=== PATIENT | male | born 1980 | race Two or more races ===

== ENCOUNTER 2017-11-06 17:17 | Inpatient (IN) | payer OTHER ==
[2017-11-06] MEDS ORDERED: HYDROmorphone 2 MG/ML SDV IM ONE (18:33)
[2017-11-06] MEDS ORDERED: Sodium Chloride 0.9% 10 ML Syringe FLUSH PRN ×2 (18:33→23:57)
[2017-11-06] MEDS ORDERED: Sodium Chloride 0.9% 2.5 ML Syringe FLUSH PRN ×2 (18:33→23:57)
[2017-11-06] MEDS ORDERED: Ondansetron 4 MG/2 ML SDV IVPUSH ONE ×2 (18:33→20:36)
--- NOTE | 2017-11-06 18:34 | EDM.PDOC ---
ED HPI GENERAL MEDICAL PROBLEM - General Chief Complaint: Abdominal Pain Stated Complaint: ABDOMINAL PAIN Time Seen by Provider: 11/06/17 18:25 Source of Information: Reports: Patient History Limitations: Reports: No Limitations - History of Present Illness INITIAL COMMENTS - FREE TEXT/NARRATIVE: HISTORY AND PHYSICAL: History of present illness: [Patient comes to the emergency room accompanied by his with complaints of abdominal pain as 5 AM this morning. The pain woke him up at 5 AM and has been continuing throughout the day. Vomiting started this evening around 4 PM. Patient states that he ate normally today including left over food from a [place] restaurant, chicken and quinoa. Last BM was at 5 p.m. and was normal. Feels bloated and full in his entire abdomen. No recent travel outside the country. No fever or chills, though he admits to feeling warm. No sore throat runny nose, recent illness or infection. No cough chest pain shortness of breath or difficulty breathing. No blood in his emesis or stools. No pain to extremities. He has no other complaints or concerns. No ill family members. History of H. pylori infection 6-7 years ago. Current symptoms feel similar.] Review of systems: As per history of present illness and below otherwise all systems reviewed and negative. Past medical history: As per history of present illness and as reviewed below otherwise noncontributory. Surgical history: As per history of present illness and as reviewed below otherwise noncontributory. Social history: No reported history of drug or alcohol abuse. Family history: As per history of present illness and as reviewed below otherwise noncontributory. Physical exam: General: Well-developed well-nourished male in no acute distress. He is hunched over an emesis bag upon arrival to the ER. HEENT: Atraumatic, normocephalic. Oral mucous membranes are pink but dry. Neck supple, no lymphadenopathy. Lungs: Clear to auscultation, breath sounds equal bilaterally, chest nontender.No wheezing, crackles or rales. Heart: S1S2, regular, negative for clicks, rubs, or JVD. Abdomen: Bowel sounds are quiet but present throughout. Abdomen is soft and nondistended. He is tender with palpation throughout his entire abdomen. No CVA tenderness. Pelvis: Stable nontender. Genitourinary: Deferred. Rectal: Deferred. Extremities: Atraumatic, negative for cords or calf pain. Swelling or cyanosis to feet or lower legs. Neurovascular unremarkable. Neuro: Awake, alert, oriented. Motor and sensory unremarkable throughout. Exam nonfocal. Diagnostics: [CBC, CMP, urinalysis, amylase, lipase, H. Pylori, CT abdomen and pelvis with contrast] Therapeutics: [1 liter NS, Dilaudid 1 mg IV, Zofran 4 mg IV] Impression: [Appendicitis H. pylori] Plan: [White blood cells 13.6, hemoglobin 14.4, H. pylori positive, amylase 54, lipase 168. Normal CMP and urinalysis. Case is discussed with Dr. Aure Lambert at 2034 who agrees to come to the emergency room to evaluate patient. She arrives to see patient in the ER at 2052 and care is transitioned to her. ] Definitive disposition and diagnosis as appropriate pending reevaluation and review of above. Right Upper Abdominal Pain Score (Numeric/FACES): 8 - Related Data Allergies Allergy/AdvReac Type Severity Reaction Status Date / Time No Known Allergies Allergy Verified 11/06/17 17:33 Home Meds: Home Meds . [No Known Home Meds] 11/06/17 [History] Past Medical History - Past Health History Medical/Surgical History: Denies Medical/Surgical History Social & Family History - Family History Family Medical History: Noncontributory - Tobacco Use Smoking Status *Q: Never Smoker - Recreational Drug Use Recreational Drug Use: No ED ROS GENERAL - Review of Systems Review Of Systems: ROS reveals no pertinent complaints other than HPI. ED EXAM, GI/ABD - Physical Exam Exam: See Below Course - Vital Signs Last Recorded V/S: Last Vital Signs Temp 97.8 F 11/06/17 18:48 Pulse 67 11/06/17 18:48 Resp 18 11/06/17 18:48 BP 116/41 L 11/06/17 18:48 Pulse Ox 97 11/06/17 18:48 - Orders/Labs/Meds Orders: Active Orders 24 hr Category Date Time Status Abdomen Pelvis w Cont [CT] Stat Exams 11/06/17 19:31 Taken UA W/MICROSCOPIC [URIN] Stat Lab 11/06/17 18:40 Ordered Sodium Chloride 0.9% [Saline Flush] Med 11/06/17 18:33 Active 10 ml FLUSH ASDIRECTED PRN Sodium Chloride 0.9% [Saline Flush] Med 11/06/17 18:33 Active 2.5 ml FLUSH ASDIRECTED PRN Saline Lock Insert [OM.PC] Stat Oth 11/06/17 18:32 Ordered Medication Orders Sodium Chloride (Saline Flush) 10 ml FLUSH ASDIRECTED PRN PRN Reason: Keep Vein Open Sodium Chloride (Saline Flush) 2.5 ml FLUSH ASDIRECTED PRN PRN Reason: Keep Vein Open Labs: Laboratory Tests 11/06/17 11/06/17 11/06/17 Range/Units 18:40 18:40 18:40 WBC 13.60 H (4.0-11.0) K/uL RBC 4.84 (4.50-5.90) M/uL Hgb 14.4 (13.0-17.0) g/dL Hct 42.1 (38.0-50.0) % MCV 87.0 (80.0-98.0) fL MCH 29.8 (27.0-32.0) pg MCHC 34.2 (31.0-37.0) g/dL RDW Std Deviation 44.5 (28.0-62.0) fl RDW Coeff of Chalino 14 (11.0-15.0) % Plt Count 191 (150-400) K/uL MPV 10.50 (7.40-12.00) fL Neut % (Auto) 69.8 (48.0-80.0) % Lymph % (Auto) 26.3 (16.0-40.0) % [place] % (Auto) 3.2 (0.0-15.0) % Eos % (Auto) 0.5 (0.0-7.0) % Baso % (Auto) 0.2 (0.0-1.5) % Neut # (Auto) 9.5 H (1.4-5.7) K/uL Lymph # (Auto) 3.6 H (0.6-2.4) K/uL [place] # (Auto) 0.4 (0.0-0.8) K/uL Eos # (Auto) 0.1 (0.0-0.7) K/uL Baso # (Auto) 0.0 (0.0-0.1) K/uL Nucleated RBC % 0.0 /100WBC Nucleated RBCs # 0 K/uL Sodium 140 (136-148) mmol/L Potassium 4.0 (3.5-5.1) mmol/L Chloride 103 (98-107) mmol/L Carbon Dioxide 29.2 (21.0-32.0) mmol/L BUN 19 H (7.0-18.0) mg/dL Creatinine 1.4 H (0.8-1.3) mg/dL Est Cr Clr Drug Dosing 68.85 mL/min Estimated GFR (MDRD) 57.7 ml/min Glucose 125 H (74-106) mg/dL Calcium 8.9 (8.5-10.1) mg/dL Total Bilirubin 0.4 (0.2-1.0) mg/dL AST 32 (15-37) IU/L ALT 57 (14-63) IU/L Alkaline Phosphatase 64 (46-116) U/L Total Protein 7.8 (6.4-8.2) g/dL Albumin 4.2 (3.4-5.0) g/dL Globulin 3.6 H (2.0-3.5) g/dL Albumin/Globulin Ratio 1.2 L (1.3-2.8) Amylase 54 (25-115) U/L Lipase 168 (73-393) U/L Urine Color YELLOW Urine Appearance CLEAR Urine pH 6.0 (5.0-8.0) Ur Specific [place] >= 1.030 (1.001-1.035) Urine Protein NEGATIVE (NEGATIVE) mg/dL Urine Glucose (UA) NEGATIVE (NEGATIVE) mg/dL Urine Ketones NEGATIVE (NEGATIVE) mg/dL Urine Occult Blood TRACE-INTACT (NEGATIVE) Urine Nitrite NEGATIVE (NEGATIVE) Urine Bilirubin NEGATIVE (NEGATIVE) Urine Urobilinogen 0.2 (<2.0) EU/dL Ur Leukocyte Esterase NEGATIVE (NEGATIVE) Urine RBC 0-1 (0-2/HPF) Urine WBC 0-1 (0-5/HPF) Ur Epithelial Cells RARE (NONE-FEW) Urine Bacteria RARE (NEGATIVE) H. pylori IgG Antibody (NEG) 11/06/17 Range/Units 18:40 WBC (4.0-11.0) K/uL RBC (4.50-5.90) M/uL Hgb (13.0-17.0) g/dL Hct (38.0-50.0) % MCV (80.0-98.0) fL MCH (27.0-32.0) pg MCHC (31.0-37.0) g/dL RDW Std Deviation (28.0-62.0) fl RDW Coeff of Chalino (11.0-15.0) % Plt Count (150-400) K/uL MPV (7.40-12.00) fL Neut % (Auto) (48.0-80.0) % Lymph % (Auto) (16.0-40.0) % [place] % (Auto) (0.0-15.0) % Eos % (Auto) (0.0-7.0) % Baso % (Auto) (0.0-1.5) % Neut # (Auto) (1.4-5.7) K/uL Lymph # (Auto) (0.6-2.4) K/uL [place] # (Auto) (0.0-0.8) K/uL Eos # (Auto) (0.0-0.7) K/uL Baso # (Auto) (0.0-0.1) K/uL Nucleated RBC % /100WBC Nucleated RBCs # K/uL Sodium (136-148) mmol/L Potassium (3.5-5.1) mmol/L Chloride (98-107) mmol/L Carbon Dioxide (21.0-32.0) mmol/L BUN (7.0-18.0) mg/dL Creatinine (0.8-1.3) mg/dL Est Cr Clr Drug Dosing mL/min Estimated GFR (MDRD) ml/min Glucose (74-106) mg/dL Calcium (8.5-10.1) mg/dL Total Bilirubin (0.2-1.0) mg/dL AST (15-37) IU/L ALT (14-63) IU/L Alkaline Phosphatase (46-116) U/L Total Protein (6.4-8.2) g/dL Albumin (3.4-5.0) g/dL Globulin (2.0-3.5) g/dL Albumin/Globulin Ratio (1.3-2.8) Amylase (25-115) U/L Lipase (73-393) U/L Urine Color Urine Appearance Urine pH (5.0-8.0) Ur Specific [place] (1.001-1.035) Urine Protein (NEGATIVE) mg/dL Urine Glucose (UA) (NEGATIVE) mg/dL Urine Ketones (NEGATIVE) mg/dL Urine Occult Blood (NEGATIVE) Urine Nitrite (NEGATIVE) Urine Bilirubin (NEGATIVE) Urine Urobilinogen (<2.0) EU/dL Ur Leukocyte Esterase (NEGATIVE) Urine RBC (0-2/HPF) Urine WBC (0-5/HPF) Ur Epithelial Cells (NONE-FEW) Urine Bacteria (NEGATIVE) H. pylori IgG Antibody POSITIVE H (NEG) Meds: Medications Generic Name Dose Route Start Last Admin Trade Name Freq PRN Reason Stop Dose Admin Sodium Chloride 10 ml 11/06/17 18:33 Saline Flush FLUSH ASDIRECTED PRN Keep Vein Open Sodium Chloride 2.5 ml 11/06/17 18:33 Saline Flush FLUSH ASDIRECTED PRN Keep Vein Open Discontinued Medications Generic Name Dose Route Start Last Admin Trade Name Freq PRN Reason Stop Dose Admin Hydromorphone HCl 1 mg 11/06/17 18:33 11/06/17 18:55 Dilaudid IM 11/06/17 18:34 Not Given ONETIME ONE Hydromorphone HCl 1 mg 11/06/17 18:36 11/06/17 18:55 Dilaudid IV 11/06/17 18:37 1 mg ONETIME ONE Administration Hydromorphone HCl 1 mg 11/06/17 20:36 11/06/17 20:45 Dilaudid IV 11/06/17 20:37 1 mg ONETIME ONE Administration Sodium Chloride 1,000 mls @ 999 mls/hr 11/06/17 19:34 11/06/17 20:46 Normal Saline IV 11/06/17 20:34 999 mls/hr STAT ONE Administration Iopamidol 200 ml 11/06/17 20:05 11/06/17 20:06 Isovue Multipack-370 (76%) IVPUSH 11/06/17 20:06 100 ml ONETIME STA Administration Ondansetron HCl 4 mg 11/06/17 18:33 11/06/17 18:47 Zofran IVPUSH 11/06/17 18:34 4 mg ONETIME ONE Administration Ondansetron HCl 4 mg 11/06/17 20:36 11/06/17 20:45 Zofran IVPUSH 11/06/17 20:37 4 mg ONETIME ONE Administration Departure - Departure Time of Disposition: 20:55 Disposition: Admitted As Inpatient 68 Condition: Good Clinical Impression: Appendicitis - Discharge Information - My Orders Last 24 Hours: My Active Orders 11/06/17 18:32 Saline Lock Insert [OM.PC] Stat 11/06/17 18:33 Sodium Chloride 0.9% [Saline Flush] 10 ml FLUSH ASDIRECTED PRN Sodium Chloride 0.9% [Saline Flush] 2.5 ml FLUSH ASDIRECTED PRN 11/06/17 18:40 UA W/MICROSCOPIC [URIN] Stat 11/06/17 19:31 Abdomen Pelvis w Cont [CT] Stat - Assessment/Plan Last 24 Hours: My Active Orders 11/06/17 18:32 Saline Lock Insert [OM.PC] Stat 11/06/17 18:33 Sodium Chloride 0.9% [Saline Flush] 10 ml FLUSH ASDIRECTED PRN Sodium Chloride 0.9% [Saline Flush] 2.5 ml FLUSH ASDIRECTED PRN 11/06/17 18:40 UA W/MICROSCOPIC [URIN] Stat 11/06/17 19:31 Abdomen Pelvis w Cont [CT] Stat
[2017-11-06] MEDS ORDERED: HYDROmorphone 2 MG/ML SDV IV ONE ×2 (18:36→20:36)
[2017-11-06] MEDS ORDERED: Sodium Chloride 0.9% 1,000 ML IV ONE (19:34)
[2017-11-06] MEDS ORDERED: Iopamidol 755 MG/ML 200 ML Multipack Bottle IVPUSH STA (20:05)
[2017-11-06] MEDS ORDERED: Piperacillin/Tazobactam 3.375 GM in Sodium Chloride 0.9% 50 ML IV ONE (21:13)
--- NOTE | 2017-11-06 21:27 | PCM.PREANE ---
Preanesthetic Assessment - Anesthesia/Transfusion/Family Hx Anesthesia History: No Prior Anesthesia - Review of Systems General: No Symptoms Pulmonary: No Symptoms Cardiovascular: No Symptoms Gastrointestinal: No Symptoms Neurological: No Symptoms Other: Reports: None - Physical Assessment O2 Sat by Pulse Oximetry: 97 Respiratory Rate: 18 Vital Signs: Last Vital Signs Temp 97.8 F 11/06/17 18:48 Pulse 67 11/06/17 18:48 Resp 18 11/06/17 18:48 BP 116/41 L 11/06/17 18:48 Pulse Ox 97 11/06/17 18:48 Height: 5 ft 7 in Weight: 93.8 kg ASA Class: 1E Mental Status: Alert & Oriented x3 Airway Class: Mallampati = 2 Dentition: Reports: Normal Dentition Thyro-Mental Finger Breadths: 3 Mouth Opening Finger Breadths: 3 ROM/Head Extension: Full Lungs: Clear to Auscultation, Normal Respiratory Effort Cardiovascular: Regular Rate, Regular Rhythm - Lab Values: Laboratory Last Values WBC 13.60 K/uL (4.0-11.0) H 11/06/17 18:40 RBC 4.84 M/uL (4.50-5.90) 11/06/17 18:40 Hgb 14.4 g/dL (13.0-17.0) 11/06/17 18:40 Hct 42.1 % (38.0-50.0) 11/06/17 18:40 MCV 87.0 fL (80.0-98.0) 11/06/17 18:40 MCH 29.8 pg (27.0-32.0) 11/06/17 18:40 MCHC 34.2 g/dL (31.0-37.0) 11/06/17 18:40 RDW Std Deviation 44.5 fl (28.0-62.0) 11/06/17 18:40 RDW Coeff of Chalino 14 % (11.0-15.0) 11/06/17 18:40 Plt Count 191 K/uL (150-400) 11/06/17 18:40 MPV 10.50 fL (7.40-12.00) 11/06/17 18:40 Neut % (Auto) 69.8 % (48.0-80.0) 11/06/17 18:40 Lymph % (Auto) 26.3 % (16.0-40.0) 11/06/17 18:40 [place] % (Auto) 3.2 % (0.0-15.0) 11/06/17 18:40 Eos % (Auto) 0.5 % (0.0-7.0) 11/06/17 18:40 Baso % (Auto) 0.2 % (0.0-1.5) 11/06/17 18:40 Neut # (Auto) 9.5 K/uL (1.4-5.7) H 11/06/17 18:40 Lymph # (Auto) 3.6 K/uL (0.6-2.4) H 11/06/17 18:40 [place] # (Auto) 0.4 K/uL (0.0-0.8) 11/06/17 18:40 Eos # (Auto) 0.1 K/uL (0.0-0.7) 11/06/17 18:40 Baso # (Auto) 0.0 K/uL (0.0-0.1) 11/06/17 18:40 Nucleated RBC % 0.0 /100WBC 11/06/17 18:40 Nucleated RBCs # 0 K/uL 11/06/17 18:40 Sodium 140 mmol/L (136-148) 11/06/17 18:40 Potassium 4.0 mmol/L (3.5-5.1) 11/06/17 18:40 Chloride 103 mmol/L (98-107) 11/06/17 18:40 Carbon Dioxide 29.2 mmol/L (21.0-32.0) 11/06/17 18:40 BUN 19 mg/dL (7.0-18.0) H 11/06/17 18:40 Creatinine 1.4 mg/dL (0.8-1.3) H 11/06/17 18:40 Est Cr Clr Drug Dosing 68.85 mL/min 11/06/17 18:40 Estimated GFR (MDRD) 57.7 ml/min 11/06/17 18:40 Glucose 125 mg/dL (74-106) H 11/06/17 18:40 Calcium 8.9 mg/dL (8.5-10.1) 11/06/17 18:40 Total Bilirubin 0.4 mg/dL (0.2-1.0) 11/06/17 18:40 AST 32 IU/L (15-37) 11/06/17 18:40 ALT 57 IU/L (14-63) 11/06/17 18:40 Alkaline Phosphatase 64 U/L (46-116) 11/06/17 18:40 Total Protein 7.8 g/dL (6.4-8.2) 11/06/17 18:40 Albumin 4.2 g/dL (3.4-5.0) 11/06/17 18:40 Globulin 3.6 g/dL (2.0-3.5) H 11/06/17 18:40 Albumin/Globulin Ratio 1.2 (1.3-2.8) L 11/06/17 18:40 Amylase 54 U/L (25-115) 11/06/17 18:40 Lipase 168 U/L (73-393) 11/06/17 18:40 Urine Color YELLOW 11/06/17 18:40 Urine Appearance CLEAR 11/06/17 18:40 Urine pH 6.0 (5.0-8.0) 11/06/17 18:40 Ur Specific [place] >= 1.030 (1.001-1.035) 11/06/17 18:40 Urine Protein NEGATIVE mg/dL (NEGATIVE) 11/06/17 18:40 Urine Glucose (UA) NEGATIVE mg/dL (NEGATIVE) 11/06/17 18:40 Urine Ketones NEGATIVE mg/dL (NEGATIVE) 11/06/17 18:40 Urine Occult Blood TRACE-INTACT (NEGATIVE) 11/06/17 18:40 Urine Nitrite NEGATIVE (NEGATIVE) 11/06/17 18:40 Urine Bilirubin NEGATIVE (NEGATIVE) 11/06/17 18:40 Urine Urobilinogen 0.2 EU/dL (<2.0) 11/06/17 18:40 Ur Leukocyte Esterase NEGATIVE (NEGATIVE) 11/06/17 18:40 Urine RBC 0-1 (0-2/HPF) 11/06/17 18:40 Urine WBC 0-1 (0-5/HPF) 11/06/17 18:40 Ur Epithelial Cells RARE (NONE-FEW) 11/06/17 18:40 Urine Bacteria RARE (NEGATIVE) 11/06/17 18:40 H. pylori IgG Antibody POSITIVE (NEG) H 11/06/17 18:40 - Allergies Allergies/Adverse Reactions: Allergies Allergy/AdvReac Type Severity Reaction Status Date / Time No Known Allergies Allergy Verified 11/06/17 17:33 - Acknowledgements Anesthesia Type Planned: General Anesthesia Pt an Appropriate Candidate for the Planned Anesthesia: Yes Alternatives and Risks of Anesthesia Discussed w Pt/Guardian: Yes Pt/Guardian Understands and Agrees with Anesthesia Plan: Yes PreAnesthesia Questionnaire - Past Health History Medical/Surgical History: Denies Medical/Surgical History HEENT History: Reports: None Cardiovascular History: Reports: None Respiratory History: Reports: None Gastrointestinal History: Reports: None Genitourinary History: Reports: None Musculoskeletal History: Reports: None Neurological History: Reports: None Psychiatric History: Reports: None Endocrine/Metabolic History: Reports: Obesity/BMI 30+ Hematologic History: Reports: None Immunologic History: Reports: None Oncologic (Cancer) History: Reports: None Dermatologic History: Reports: None - Infectious Disease History Infectious Disease History: Reports: Helicobacter Pylori - Past Surgical History Other Head Surgeries/Procedures: Dental procedure in the past that he woke up during. Unknown anesthesia was used. - SUBSTANCE USE Smoking Status *Q: Never Smoker Recreational Drug Use History: No - HOME MEDS Home Medications: Home Meds . [No Known Home Meds] 11/06/17 [History] - CURRENT (IN HOUSE) MEDS Current Meds: Current Medications Piperacillin Sod/Tazobactam (Sod 3.375 gm/ Sodium Chloride) 50 mls @ 100 mls/ hr IV ONETIME ONE Stop: 11/06/17 21:42 Sodium Chloride (Saline Flush) 10 ml FLUSH ASDIRECTED PRN PRN Reason: Keep Vein Open Sodium Chloride (Saline Flush) 2.5 ml FLUSH ASDIRECTED PRN PRN Reason: Keep Vein Open Discontinued Medications Hydromorphone HCl (Dilaudid) 1 mg IM ONETIME ONE Stop: 11/06/17 18:34 Last Admin: 11/06/17 18:55 Dose: Not Given Hydromorphone HCl (Dilaudid) 1 mg IV ONETIME ONE Stop: 11/06/17 18:37 Last Admin: 11/06/17 18:55 Dose: 1 mg Hydromorphone HCl (Dilaudid) 1 mg IV ONETIME ONE Stop: 11/06/17 20:37 Last Admin: 11/06/17 20:45 Dose: 1 mg Sodium Chloride (Normal Saline) 1,000 mls @ 999 mls/hr IV STAT ONE Stop: 11/06/17 20:34 Last Admin: 11/06/17 20:46 Dose: 999 mls/hr Iopamidol (Isovue Multipack-370 (76%)) 200 ml IVPUSH ONETIME STA Stop: 11/06/17 20:06 Last Admin: 11/06/17 20:06 Dose: 100 ml Ondansetron HCl (Zofran) 4 mg IVPUSH ONETIME ONE Stop: 11/06/17 18:34 Last Admin: 11/06/17 18:47 Dose: 4 mg Ondansetron HCl (Zofran) 4 mg IVPUSH ONETIME ONE Stop: 11/06/17 20:37 Last Admin: 11/06/17 20:45 Dose: 4 mg
[2017-11-06] MEDS: Lactated Ringers 1,000 ML IV SCH (21:30)
[2017-11-06] MEDS ORDERED: Famotidine 20 MG/2 ML SDV IVPUSH ONE (21:32)
[2017-11-06] MEDS ORDERED: Albuterol 0.083% 2.5 MG/3 ML Neb Soln NEB ONE (21:32)
--- NOTE | 2017-11-06 21:32 | PCM.HP ---
H&P History of Present Illness - General Date of Service: 11/06/17 Source of Information: Patient History Limitations: Reports: No Limitations - History of Present Illness Initial Comments - Free Text/Narative: Patient is a 37 year old male who presents with a one day history of abdominal pain. It started this morning and was located more in the upper abdomen. He developed chills, nausea and vomiting. The pain continued to get worse, so he presented to the ED. A CBC showed a leukocytosis 13.6K. A CT of the abdomen pelvis showed appendicitis. Right Upper Abdominal Pain Score (Numeric/FACES): 8 - Related Data Allergies/Adverse Reactions: Allergies Allergy/AdvReac Type Severity Reaction Status Date / Time No Known Allergies Allergy Verified 11/06/17 17:33 Home Medications: Home Meds . [No Known Home Meds] 11/06/17 [History] Past Medical History - Past Health History Medical/Surgical History: Denies Medical/Surgical History - Past Surgical History HEENT Surgical History: Reports: Other (See Below) (Dental surgery) Social & Family History - Family History Family Medical History: Noncontributory - Tobacco Use Smoking Status *Q: Never Smoker - Alcohol Use Alcohol Use History: Yes Alcohol Use Frequency: Rarely - Recreational Drug Use Recreational Drug Use: No - Living Situation & Occupation Living situation: Reports: Occupation: Employed H&P Review of Systems - Review of Systems: Review Of Systems: ROS reveals no pertinent complaints other than HPI. Exam - Exam Exam: See Below - Vital Signs Vital Signs: Last Vital Signs Temp 36.6 C 11/06/17 18:48 Pulse 67 11/06/17 18:48 Resp 18 11/06/17 18:48 BP 116/41 L 11/06/17 18:48 Pulse Ox 97 11/06/17 18:48 Weight: 93.8 kg - Exam General: Alert, Oriented Neck: Supple Lungs: Clear to Auscultation, Normal Respiratory Effort Cardiovascular: Regular Rate, Regular Rhythm GI/Abdominal Exam: Soft, No Distention, Guarding (RLQ), Rebound (RLQ), Tender ( RLQ) - Patient Data Lab Results Last 24 hrs: Laboratory Results - last 24 hr 11/06/17 11/06/17 11/06/17 Range/Units 18:40 18:40 18:40 WBC 13.60 H (4.0-11.0) K/uL RBC 4.84 (4.50-5.90) M/uL Hgb 14.4 (13.0-17.0) g/dL Hct 42.1 (38.0-50.0) % MCV 87.0 (80.0-98.0) fL MCH 29.8 (27.0-32.0) pg MCHC 34.2 (31.0-37.0) g/dL RDW Std Deviation 44.5 (28.0-62.0) fl RDW Coeff of [place] 14 (11.0-15.0) % Plt Count 191 (150-400) K/uL MPV 10.50 (7.40-12.00) fL Neut % (Auto) 69.8 (48.0-80.0) % Lymph % (Auto) 26.3 (16.0-40.0) % [place] % (Auto) 3.2 (0.0-15.0) % Eos % (Auto) 0.5 (0.0-7.0) % Baso % (Auto) 0.2 (0.0-1.5) % Neut # (Auto) 9.5 H (1.4-5.7) K/uL Lymph # (Auto) 3.6 H (0.6-2.4) K/uL [place] # (Auto) 0.4 (0.0-0.8) K/uL Eos # (Auto) 0.1 (0.0-0.7) K/uL Baso # (Auto) 0.0 (0.0-0.1) K/uL Nucleated RBC % 0.0 /100WBC Nucleated RBCs # 0 K/uL Sodium 140 (136-148) mmol/L Potassium 4.0 (3.5-5.1) mmol/L Chloride 103 (98-107) mmol/L Carbon Dioxide 29.2 (21.0-32.0) mmol/L BUN 19 H (7.0-18.0) mg/dL Creatinine 1.4 H (0.8-1.3) mg/dL Est Cr Clr Drug Dosing 68.85 mL/min Estimated GFR (MDRD) 57.7 ml/min Glucose 125 H (74-106) mg/dL Calcium 8.9 (8.5-10.1) mg/dL Total Bilirubin 0.4 (0.2-1.0) mg/dL AST 32 (15-37) IU/L ALT 57 (14-63) IU/L Alkaline Phosphatase 64 (46-116) U/L Total Protein 7.8 (6.4-8.2) g/dL Albumin 4.2 (3.4-5.0) g/dL Globulin 3.6 H (2.0-3.5) g/dL Albumin/Globulin Ratio 1.2 L (1.3-2.8) Amylase 54 (25-115) U/L Lipase 168 (73-393) U/L Urine Color YELLOW Urine Appearance CLEAR Urine pH 6.0 (5.0-8.0) Ur Specific [place] >= 1.030 (1.001-1.035) Urine Protein NEGATIVE (NEGATIVE) mg/dL Urine Glucose (UA) NEGATIVE (NEGATIVE) mg/dL Urine Ketones NEGATIVE (NEGATIVE) mg/dL Urine Occult Blood TRACE-INTACT (NEGATIVE) Urine Nitrite NEGATIVE (NEGATIVE) Urine Bilirubin NEGATIVE (NEGATIVE) Urine Urobilinogen 0.2 (<2.0) EU/dL Ur Leukocyte Esterase NEGATIVE (NEGATIVE) Urine RBC 0-1 (0-2/HPF) Urine WBC 0-1 (0-5/HPF) Ur Epithelial Cells RARE (NONE-FEW) Urine Bacteria RARE (NEGATIVE) H. pylori IgG Antibody (NEG) 11/06/17 Range/Units 18:40 WBC (4.0-11.0) K/uL RBC (4.50-5.90) M/uL Hgb (13.0-17.0) g/dL Hct (38.0-50.0) % MCV (80.0-98.0) fL MCH (27.0-32.0) pg MCHC (31.0-37.0) g/dL RDW Std Deviation (28.0-62.0) fl RDW Coeff of [place] (11.0-15.0) % Plt Count (150-400) K/uL MPV (7.40-12.00) fL Neut % (Auto) (48.0-80.0) % Lymph % (Auto) (16.0-40.0) % [place] % (Auto) (0.0-15.0) % Eos % (Auto) (0.0-7.0) % Baso % (Auto) (0.0-1.5) % Neut # (Auto) (1.4-5.7) K/uL Lymph # (Auto) (0.6-2.4) K/uL [place] # (Auto) (0.0-0.8) K/uL Eos # (Auto) (0.0-0.7) K/uL Baso # (Auto) (0.0-0.1) K/uL Nucleated RBC % /100WBC Nucleated RBCs # K/uL Sodium (136-148) mmol/L Potassium (3.5-5.1) mmol/L Chloride (98-107) mmol/L Carbon Dioxide (21.0-32.0) mmol/L BUN (7.0-18.0) mg/dL Creatinine (0.8-1.3) mg/dL Est Cr Clr Drug Dosing mL/min Estimated GFR (MDRD) ml/min Glucose (74-106) mg/dL Calcium (8.5-10.1) mg/dL Total Bilirubin (0.2-1.0) mg/dL AST (15-37) IU/L ALT (14-63) IU/L Alkaline Phosphatase (46-116) U/L Total Protein (6.4-8.2) g/dL Albumin (3.4-5.0) g/dL Globulin (2.0-3.5) g/dL Albumin/Globulin Ratio (1.3-2.8) Amylase (25-115) U/L Lipase (73-393) U/L Urine Color Urine Appearance Urine pH (5.0-8.0) Ur Specific [place] (1.001-1.035) Urine Protein (NEGATIVE) mg/dL Urine Glucose (UA) (NEGATIVE) mg/dL Urine Ketones (NEGATIVE) mg/dL Urine Occult Blood (NEGATIVE) Urine Nitrite (NEGATIVE) Urine Bilirubin (NEGATIVE) Urine Urobilinogen (<2.0) EU/dL Ur Leukocyte Esterase (NEGATIVE) Urine RBC (0-2/HPF) Urine WBC (0-5/HPF) Ur Epithelial Cells (NONE-FEW) Urine Bacteria (NEGATIVE) H. pylori IgG Antibody POSITIVE H (NEG) Result Diagrams: 11/06/17 18:40 11/06/17 18:40 - Problem List (1) Appendicitis SNOMED Code(s): 36783820 ICD Code: K37 - UNSPECIFIED APPENDICITIS Status: Acute Current Visit: Yes Problem List Initiated/Reviewed/Updated: Yes Orders Last 24hrs: Active Orders 24 hr Category Date Time Status Abdomen Pelvis w Cont [CT] Stat Exams 11/06/17 19:31 Taken UA W/MICROSCOPIC [URIN] Stat Lab 11/06/17 18:40 Ordered Piperacillin/Tazobactam [Piperacil-Tazobact] 3.375 gm Med 11/06/17 21:13 Active Sodium Chloride 0.9% [Normal Saline] 50 ml IV ONETIME Sodium Chloride 0.9% [Saline Flush] Med 11/06/17 18:33 Active 10 ml FLUSH ASDIRECTED PRN Sodium Chloride 0.9% [Saline Flush] Med 11/06/17 18:33 Active 2.5 ml FLUSH ASDIRECTED PRN Saline Lock Insert [OM.PC] Stat Oth 11/06/17 18:32 Ordered Medication Orders Piperacillin Sod/Tazobactam (Sod 3.375 gm/ Sodium Chloride) 50 mls @ 100 mls/ hr IV ONETIME ONE Stop: 11/06/17 21:42 Sodium Chloride (Saline Flush) 10 ml FLUSH ASDIRECTED PRN PRN Reason: Keep Vein Open Sodium Chloride (Saline Flush) 2.5 ml FLUSH ASDIRECTED PRN PRN Reason: Keep Vein Open Assessment/Plan Comment:: We discussed the pathophysiology of appendicitis. The treatment is appendectomy. We discussed the laparoscopic and open approaches. I will attempt it laparoscopically but should I be unable to do it safely I will convert to open. We discussed the risks including bleeding, infection and perforation. He will be admitted postoperatively for observation. He verbalized understanding and wishes to proceed.
[2017-11-06] MEDS ORDERED: Ondansetron 4 MG/2 ML SDV ONE (21:41)
[2017-11-06] MEDS ORDERED: Succinylcholine 200 MG/10 ML MDV ONE (21:41)
[2017-11-06] MEDS ORDERED: Lidocaine 2% 5 ML SDV ONE (21:41)
[2017-11-06] MEDS ORDERED: Rocuronium 10 MG/ML 10 ML Syringe ONE (21:41)
[2017-11-06] MEDS ORDERED: fentaNYL 250 MCG/5 ML SDV ONE (21:42)
[2017-11-06] MEDS ORDERED: Midazolam 1 MG/ML 2 ML SDV ONE (21:42)
[2017-11-06] MEDS ORDERED: Propofol 200 MG/20 ML SDV ONE (21:42)
[2017-11-06] MEDS ORDERED: Bupivacaine 0.5% 10 ML SDV ONE (21:47)
[2017-11-06] MEDS ORDERED: Phenylephrine/Normal Saline 100 MCG/ML 10 ML Syringe ONE (22:18)
[2017-11-06] MEDS ORDERED: Vasopressin 20 Units/1 ML MDV ONE (22:22)
[2017-11-06] MEDS ORDERED: Glycopyrrolate 0.2 MG/ML SDV ONE (22:52)
[2017-11-06] MEDS ORDERED: VASOPRESSIN IV SCH (23:45)
[2017-11-06] MEDS ORDERED: SODIUM CHLORIDE 0.9% IV SCH (23:45)
[2017-11-06] MEDS ORDERED: Albuterol/Ipratropium 3.0-0.5 MG/3 ML Neb Soln NEB ONE (23:56)
[2017-11-06] MEDS ORDERED: HYDROmorphone 2 MG/ML SDV IVPUSH PRN (23:57)
[2017-11-06] MEDS ORDERED: diphenhydrAMINE 50 MG/ML SDV IVPUSH PRN (23:57)
--- NOTE | 2017-11-06 23:57 | PCM.OPNOTE ---
- General Post-Op/Procedure Note Date of Surgery/Procedure: 11/06/17 Operative Procedure(s): Laparoscopic appendectomy Findings: Non-perforated appendicitis Pre Op Diagnosis: Appendicitis Post-Op Diagnosis: same Anesthesia Technique: General ET Tube Primary Surgeon: Aure Lambert Pathology: Appendix Output, Urine Amount: 150 EBL in mLs: 3,000 Condition: Good
[2017-11-07] MEDS ORDERED: Albuterol/Ipratropium 3.0-0.5 MG/3 ML Neb Soln NEB PRN (00:01)
--- NOTE | 2017-11-07 00:39 | PCM.POSTAN ---
POST ANESTHESIA ASSESSMENT - MENTAL STATUS Mental Status: Alert, Oriented - VITAL SIGNS Pulse Rate: 80 SaO2: 95 (NC) Resp Rate: 14 Blood Pressure: 110/45 - RESPIRATORY Respiratory Status: Respiratory Rate WNL, Airway Patent, O2 Saturation Stable - CARDIOVASCULAR CV Status: Pulse Rate WNL, Blood Pressure Stable (Currently on vasopressin 4 units/hr) - GASTROINTESTINAL GI Status: No Symptoms - PAIN Pain Score: 2 - POST OP HYDRATION Hydration Status: Adequate & Stable - OBSERVATIONS Free Text/Narrative:: When admitted to PACU, Levophed 0.1mcg/kg/min and vasopressin 4 units/HR via Rt EJ 18g. Lactate drawn was 2.7 after 3.5L of Fluid replacement. Additional 1 liter bolus is currently infusing. Levophed titrated off. Vasopressin remains at 4 units/HR.
[2017-11-07] MEDS: Lactated Ringers 1,000 ML IV SCH ×5 (01:40→20:06)
[2017-11-07] MEDS: Acetaminophen/HYDROcodone 325-5 MG Tab PO PRN ×4 (05:20→20:24)
[2017-11-07] MEDS ORDERED: Piperacillin/Tazobactam 3.375 GM in Sodium Chloride 0.9% 50 ML IV SCH (06:00)
[2017-11-07 06:50] LABS: CHLORIDE,CL 103 mmol/L (98-107); SODIUM,NA 137 mmol/L (136-148)
[2017-11-07] MEDS ORDERED: Lidocaine 2% 5 ML SDV ONE (06:54)
[2017-11-07] MEDS: Ondansetron 4 MG/2 ML SDV IVPUSH PRN ×2 (07:40→23:00)
--- NOTE | 2017-11-07 07:57 | PCM48HPAN ---
Post Anesthesia Note - EVALUATION WITHIN 48HRS OF ANESTHETIC Vital Signs in Normal Range: Yes (With vasopressin drip) Patient Participated in Evaluation: Yes Respiratory Function Stable: Yes Airway Patent: Yes Cardiovascular Function Stable: Yes Hydration Status Stable: Yes Pain Control Satisfactory: Yes Nausea and Vomiting Control Satisfactory: Yes (receiving zofran) Mental Status Recovered: Yes Pulse Rate: 80 Resp Rate: 18 Blood Pressure: 110/45
--- NOTE | 2017-11-07 08:08 | PCM.SN ---
- Free Text/Narrative Note: On exam this morning, the patient physically looks better than he did last NOC. However, his lactate acid was 2.7 last NOC in PACU, 1 Liter fluid bolus was given at that time and then subsequent Maintenance fluids at 200mL/HR per Dr Lambert. This morning the patient has had increasingly labile blood pressures, increased vasopressin requirements, and his lactate acid is 3.1. I called and spoke with Dr Lambert who agreed that we should proceed with arterial line placement and CVL placement for CVP monitoring and levophed drip. The patient and his were at the bedside. First, I explained the risks and benefits of both procedures including but not limited to: Bleeding, infection, nerve damage, pneumothorax, . Pt understands and wishes to proceed at this time. Arterial Line Procedure note Rt radial artery was palpated, it is weak. Betadine was used to prep the wrist , Lidocaine 2% 0.5mL was infiltrated for local anesthesia. Next the entire wrist was prepped and draped in sterile fashion. Rt radial artery was re- appreciated, 20g arrow catheter was then introduced into the artery. Good pulsating blood return was noted, the catheter was slide over the guidewire and into place. Transducer shows good arterial waveform that is correlating with the NIBP at this time. Catheter was then secured with tape, tegaderm, and armboard. Pt tolerated procedure well. Please see Dr Lambert's note for CVL placement.
--- NOTE | 2017-11-07 10:35 | CT ---
EXAM DATE: 11/07/17 PATIENT'S AGE: 37 Patient: BRENDA CROOKS Facility: [place], [place] Site . Site : [id number] Study: CT Abdomen/Pelvis WITH [id number]/11/2018 8:06:28 PM Ordering Physician: Doctor Alaniz Final Report: INDICATION: Abdominal pain and nausea. Positive H. pylori. CT ABDOMEN AND PELVIS WITH CONTRAST TECHNIQUE: Multidetector CT imaging was performed through the abdomen and pelvis following intravenous contrast administration using 100 mL Isovue 370. Coronal and sagittal reconstructions were generated. COMPARISON: None. FINDINGS: Lower chest: Mild bibasilar lung atelectasis. Liver: Within normal limits. Gallbladder and bile ducts: No gallbladder wall thickening or calcified gallstones. No biliary dilation identified. Pancreas: Unremarkable. Spleen: Normal. Adrenals: No nodules or masses. Kidneys, ureters, and urinary bladder: No renal masses or hydronephrosis. No bladder mass or definite wall thickening. Gastrointestinal tract: Normal caliber bowel without wall thickening. Abnormally dilated appendix measuring up to 13 millimeters in diameter with an appendicolith in the proximal appendiceal lumen and subtle periappendiceal fat stranding, consistent with appendicitis. Vascular structures: Normal for age. Peritoneum: No free air, abscess, or significant free fluid. Lymph nodes: No pathologically enlarged nodes identified. Reproductive organs: No pelvic masses. Bones: Normal for age. IMPRESSION: Appendicitis. No evidence of perforation or abscess. Results were called to Dr. Lane at 8:30 p.m. on 11/06/2017. BRAIN FERREIRA MD [employer] [employer] Dictated by Supa Ferreira MD @ 11/06/2017 8:33:07 PM Dictated by: Supa Ferreira MD @ 11/06/2017 20:39:01 (Electronic Signature) Report Signed by Proxy. [facility]IT[facility]risty
--- NOTE | 2017-11-07 11:50 | PCM.SURGPN ---
- General Info Date of Service: 11/07/17 Date of Surgery/Procedure: 11/06/17 POD#: 1 Post-Op Diagnosis: Acute appendicitis Functional Status: Reports: Pain Controlled - Review of Systems General: Reports: No Symptoms Pulmonary: Reports: No Symptoms Cardiovascular: Reports: No Symptoms Gastrointestinal: Reports: Nausea Genitourinary: Reports: No Symptoms Musculoskeletal: Reports: No Symptoms - Patient Data Vitals - Most Recent: Last Vital Signs Temp 36.9 C 11/07/17 08:00 Pulse 80 11/07/17 07:57 Resp 14 11/07/17 11:00 BP 104/49 L 11/07/17 11:00 Pulse Ox 94 L 11/07/17 11:00 Weight - Most Recent: 95.617 kg I&O - Last 24 Hours: Intake & Output 11/06/17 11/07/17 11/07/17 22:59 06:59 14:59 Intake Total 4033 486 Output Total 150 670 140 Balance -150 3363 346 Lab Results Last 24 Hrs: Laboratory Results - last 24 hr 11/06/17 11/06/17 11/06/17 Range/Units 18:40 18:40 18:40 WBC 13.60 H (4.0-11.0) K/uL RBC 4.84 (4.50-5.90) M/uL Hgb 14.4 (13.0-17.0) g/dL Hct 42.1 (38.0-50.0) % MCV 87.0 (80.0-98.0) fL MCH 29.8 (27.0-32.0) pg MCHC 34.2 (31.0-37.0) g/dL RDW Std Deviation 44.5 (28.0-62.0) fl RDW Coeff of Chalino 14 (11.0-15.0) % Plt Count 191 (150-400) K/uL MPV 10.50 (7.40-12.00) fL Neut % (Auto) 69.8 (48.0-80.0) % Lymph % (Auto) 26.3 (16.0-40.0) % [place] % (Auto) 3.2 (0.0-15.0) % Eos % (Auto) 0.5 (0.0-7.0) % Baso % (Auto) 0.2 (0.0-1.5) % Neut # (Auto) 9.5 H (1.4-5.7) K/uL Lymph # (Auto) 3.6 H (0.6-2.4) K/uL [place] # (Auto) 0.4 (0.0-0.8) K/uL Eos # (Auto) 0.1 (0.0-0.7) K/uL Baso # (Auto) 0.0 (0.0-0.1) K/uL Nucleated RBC % 0.0 /100WBC Nucleated RBCs # 0 K/uL Lactate (0.20-2.00) mmol/L Sodium 140 (136-148) mmol/L Potassium 4.0 (3.5-5.1) mmol/L Chloride 103 (98-107) mmol/L Carbon Dioxide 29.2 (21.0-32.0) mmol/L BUN 19 H (7.0-18.0) mg/dL Creatinine 1.4 H (0.8-1.3) mg/dL Est Cr Clr Drug Dosing 68.85 mL/min Estimated GFR (MDRD) 57.7 ml/min Glucose 125 H (74-106) mg/dL Calcium 8.9 (8.5-10.1) mg/dL Total Bilirubin 0.4 (0.2-1.0) mg/dL AST 32 (15-37) IU/L ALT 57 (14-63) IU/L Alkaline Phosphatase 64 (46-116) U/L Total Protein 7.8 (6.4-8.2) g/dL Albumin 4.2 (3.4-5.0) g/dL Globulin 3.6 H (2.0-3.5) g/dL Albumin/Globulin Ratio 1.2 L (1.3-2.8) Amylase 54 (25-115) U/L Lipase 168 (73-393) U/L Urine Color YELLOW Urine Appearance CLEAR Urine pH 6.0 (5.0-8.0) Ur Specific [place] >= 1.030 (1.001-1.035) Urine Protein NEGATIVE (NEGATIVE) mg/dL Urine Glucose (UA) NEGATIVE (NEGATIVE) mg/dL Urine Ketones NEGATIVE (NEGATIVE) mg/dL Urine Occult Blood TRACE-INTACT (NEGATIVE) Urine Nitrite NEGATIVE (NEGATIVE) Urine Bilirubin NEGATIVE (NEGATIVE) Urine Urobilinogen 0.2 (<2.0) EU/dL Ur Leukocyte Esterase NEGATIVE (NEGATIVE) Urine RBC 0-1 (0-2/HPF) Urine WBC 0-1 (0-5/HPF) Ur Epithelial Cells RARE (NONE-FEW) Urine Bacteria RARE (NEGATIVE) H. pylori IgG Antibody (NEG) 11/06/17 11/07/17 11/07/17 Range/Units 18:40 00:13 05:18 WBC 13.87 H (4.0-11.0) K/uL RBC 4.04 L (4.50-5.90) M/uL Hgb 11.8 L (13.0-17.0) g/dL Hct 35.3 L (38.0-50.0) % MCV 87.4 (80.0-98.0) fL MCH 29.2 (27.0-32.0) pg MCHC 33.4 (31.0-37.0) g/dL RDW Std Deviation 44.9 (28.0-62.0) fl RDW Coeff of [place] 14 (11.0-15.0) % Plt Count 169 (150-400) K/uL MPV 10.90 (7.40-12.00) fL Neut % (Auto) 80.7 H (48.0-80.0) % Lymph % (Auto) 14.1 L (16.0-40.0) % [place] % (Auto) 5.1 (0.0-15.0) % Eos % (Auto) 0.0 (0.0-7.0) % Baso % (Auto) 0.1 (0.0-1.5) % Neut # (Auto) 11.2 H (1.4-5.7) K/uL Lymph # (Auto) 2.0 (0.6-2.4) K/uL [place] # (Auto) 0.7 (0.0-0.8) K/uL Eos # (Auto) 0.0 (0.0-0.7) K/uL Baso # (Auto) 0.0 (0.0-0.1) K/uL Nucleated RBC % 0.0 /100WBC Nucleated RBCs # 0 K/uL Lactate 2.7 H (0.20-2.00) mmol/L Sodium (136-148) mmol/L Potassium (3.5-5.1) mmol/L Chloride (98-107) mmol/L Carbon Dioxide (21.0-32.0) mmol/L BUN (7.0-18.0) mg/dL Creatinine (0.8-1.3) mg/dL Est Cr Clr Drug Dosing mL/min Estimated GFR (MDRD) ml/min Glucose (74-106) mg/dL Calcium (8.5-10.1) mg/dL Total Bilirubin (0.2-1.0) mg/dL AST (15-37) IU/L ALT (14-63) IU/L Alkaline Phosphatase (46-116) U/L Total Protein (6.4-8.2) g/dL Albumin (3.4-5.0) g/dL Globulin (2.0-3.5) g/dL Albumin/Globulin Ratio (1.3-2.8) Amylase (25-115) U/L Lipase (73-393) U/L Urine Color Urine Appearance Urine pH (5.0-8.0) Ur Specific [place] (1.001-1.035) Urine Protein (NEGATIVE) mg/dL Urine Glucose (UA) (NEGATIVE) mg/dL Urine Ketones (NEGATIVE) mg/dL Urine Occult Blood (NEGATIVE) Urine Nitrite (NEGATIVE) Urine Bilirubin (NEGATIVE) Urine Urobilinogen (<2.0) EU/dL Ur Leukocyte Esterase (NEGATIVE) Urine RBC (0-2/HPF) Urine WBC (0-5/HPF) Ur Epithelial Cells (NONE-FEW) Urine Bacteria (NEGATIVE) H. pylori IgG Antibody POSITIVE H (NEG) 11/07/1718 Range/Units 05:18 05:18 WBC (4.0-11.0) K/uL RBC (4.50-5.90) M/uL Hgb (13.0-17.0) g/dL Hct (38.0-50.0) % MCV (80.0-98.0) fL MCH (27.0-32.0) pg MCHC (31.0-37.0) g/dL RDW Std Deviation (28.0-62.0) fl RDW Coeff of Chalino (11.0-15.0) % Plt Count (150-400) K/uL MPV (7.40-12.00) fL Neut % (Auto) (48.0-80.0) % Lymph % (Auto) (16.0-40.0) % [place] % (Auto) (0.0-15.0) % Eos % (Auto) (0.0-7.0) % Baso % (Auto) (0.0-1.5) % Neut # (Auto) (1.4-5.7) K/uL Lymph # (Auto) (0.6-2.4) K/uL [place] # (Auto) (0.0-0.8) K/uL Eos # (Auto) (0.0-0.7) K/uL Baso # (Auto) (0.0-0.1) K/uL Nucleated RBC % /100WBC Nucleated RBCs # K/uL Lactate 3.1 H (0.20-2.00) mmol/L Sodium 137 (136-148) mmol/L Potassium 4.3 (3.5-5.1) mmol/L Chloride 103 (98-107) mmol/L Carbon Dioxide 25.0 (21.0-32.0) mmol/L BUN 12 (7.0-18.0) mg/dL Creatinine 1.2 (0.8-1.3) mg/dL Est Cr Clr Drug Dosing 80.33 mL/min Estimated GFR (MDRD) > 60.0 ml/min Glucose 157 H (74-106) mg/dL Calcium 8.0 L (8.5-10.1) mg/dL Total Bilirubin (0.2-1.0) mg/dL AST (15-37) IU/L ALT (14-63) IU/L Alkaline Phosphatase (46-116) U/L Total Protein (6.4-8.2) g/dL Albumin (3.4-5.0) g/dL Globulin (2.0-3.5) g/dL Albumin/Globulin Ratio (1.3-2.8) Amylase (25-115) U/L Lipase (73-393) U/L Urine Color Urine Appearance Urine pH (5.0-8.0) Ur Specific [place] (1.001-1.035) Urine Protein (NEGATIVE) mg/dL Urine Glucose (UA) (NEGATIVE) mg/dL Urine Ketones (NEGATIVE) mg/dL Urine Occult Blood (NEGATIVE) Urine Nitrite (NEGATIVE) Urine Bilirubin (NEGATIVE) Urine Urobilinogen (<2.0) EU/dL Ur Leukocyte Esterase (NEGATIVE) Urine RBC (0-2/HPF) Urine WBC (0-5/HPF) Ur Epithelial Cells (NONE-FEW) Urine Bacteria (NEGATIVE) H. pylori IgG Antibody (NEG) Med Orders - Current: Current Medications Hydrocodone Bitart/Acetaminophen ([place] 325-5 Mg) 2 tab PO Q4H PRN PRN Reason: Pain (moderate 4-6) Last Admin: 11/07/17 10:17 Dose: 2 tab Albuterol/Ipratropium (Duoneb 3.0-0.5 Mg/3 Ml) 3 ml NEB Q4HRRT PRN PRN Reason: Shortness of Breath Last Admin: 11/07/17 08:04 Dose: 3 ml Diphenhydramine HCl (Benadryl) 25 mg IVPUSH Q4H PRN PRN Reason: Itching Hydromorphone HCl (Dilaudid) 0.5 mg IVPUSH Q1H PRN PRN Reason: Pain (severe 7-10) Lactated Ringer's (Ringers, Lactated) 1,000 mls @ 200 mls/hr IV ASDIRECTED DARRELL Last Admin: 11/07/17 11:07 Dose: 200 mls/hr Norepinephrine Bitartrate (Norepinephr-0.9% Nacl 4 Mg/250) 4 mg in 250 mls @ 7.5 mls/hr IV TITRATE DARRELL; Protocol Last Titration: 11/07/17 08:51 Dose: 1 mcg/min, 3.75 mls/hr Vasopressin 50 units/ Sodium (Chloride) 50 mls @ 0.6 mls/hr IV TITRATE DARRELL; Protocol Last Titration: 11/07/17 05:45 Dose: 0.07 units/min, 4.2 mls/hr Piperacillin Sod/Tazobactam (Sod 3.375 gm/ Sodium Chloride) 50 mls @ 100 mls/ hr IV Q6H DARRELL Ondansetron HCl (Zofran) 4 mg IVPUSH Q6H PRN PRN Reason: Nausea/Vomiting Last Admin: 11/07/17 07:40 Dose: 4 mg Sodium Chloride (Saline Flush) 10 ml FLUSH ASDIRECTED PRN PRN Reason: Keep Vein Open Sodium Chloride (Saline Flush) 2.5 ml FLUSH ASDIRECTED PRN PRN Reason: Keep Vein Open Discontinued Medications Albuterol (Proventil Neb Soln) 2.5 mg NEB ONETIME ONE Stop: 11/06/17 21:33 Last Admin: 11/06/17 21:51 Dose: 2.5 mg Albuterol/Ipratropium (Duoneb 3.0-0.5 Mg/3 Ml) 3 ml NEB ONETIME ONE Stop: 11/06/17 23:57 Last Admin: 11/07/17 00:13 Dose: 3 ml Bupivacaine HCl (Sensorcaine-Mpf 0.5%) Confirm Administered Dose 20 ml .ROUTE .STK-MED ONE Stop: 11/06/17 21:48 Famotidine (Pepcid) 20 mg IVPUSH ONETIME ONE Stop: 11/06/17 21:33 Last Admin: 11/06/17 21:39 Dose: 20 mg Fentanyl (Sublimaze) Confirm Administered Dose 250 mcg .ROUTE .STK-MED ONE Stop: 11/06/17 21:43 Glycopyrrolate (Robinul) Confirm Administered Dose 0.2 mg .ROUTE .STK-MED ONE Stop: 11/06/17 22:53 Hydromorphone HCl (Dilaudid) 1 mg IM ONETIME ONE Stop: 11/06/17 18:34 Last Admin: 11/06/17 18:55 Dose: Not Given Hydromorphone HCl (Dilaudid) 1 mg IV ONETIME ONE Stop: 11/06/17 18:37 Last Admin: 11/06/17 18:55 Dose: 1 mg Hydromorphone HCl (Dilaudid) 1 mg IV ONETIME ONE Stop: 11/06/17 20:37 Last Admin: 11/06/17 20:45 Dose: 1 mg Sodium Chloride (Normal Saline) 1,000 mls @ 999 mls/hr IV STAT ONE Stop: 11/06/17 20:34 Last Admin: 11/06/17 20:46 Dose: 999 mls/hr Piperacillin Sod/Tazobactam (Sod 3.375 gm/ Sodium Chloride) 50 mls @ 100 mls/ hr IV ONETIME ONE Stop: 11/06/17 21:42 Last Admin: 11/06/17 21:34 Dose: 100 mls/hr Vasopressin 100 units/ Sodium (Chloride) 100 mls @ 0.6 mls/hr IV TITRATE DARRELL; Protocol Piperacillin Sod/Tazobactam (Sod 3.375 gm/ Sodium Chloride) 50 mls @ 100 mls/ hr IV Q8H DARRELL Last Admin: 11/07/17 05:56 Dose: 100 mls/hr Iopamidol (Isovue Multipack-370 (76%)) 200 ml IVPUSH ONETIME STA Stop: 11/06/17 20:06 Last Admin: 11/06/17 20:06 Dose: 100 ml Lidocaine (Xylocaine-Mpf 2%) Confirm Administered Dose 5 ml .ROUTE .STK-MED ONE Stop: 11/06/17 21:42 Lidocaine (Xylocaine-Mpf 2%) Confirm Administered Dose 5 ml .ROUTE .STK-MED ONE Stop: 11/07/17 06:55 Last Admin: 11/07/17 08:02 Dose: Not Given Midazolam HCl (Versed 1 Mg/Ml) Confirm Administered Dose 2 mg .ROUTE .STK-MED ONE Stop: 11/06/17 21:43 Ondansetron HCl (Zofran) 4 mg IVPUSH ONETIME ONE Stop: 11/06/17 18:34 Last Admin: 11/06/17 18:47 Dose: 4 mg Ondansetron HCl (Zofran) 4 mg IVPUSH ONETIME ONE Stop: 11/06/17 20:37 Last Admin: 11/06/17 20:45 Dose: 4 mg Ondansetron HCl (Zofran) Confirm Administered Dose 4 mg .ROUTE .STK-MED ONE Stop: 11/06/17 21:42 Phenylephrine HCl (Phenylephrine In Ns 100 Mcg/Ml) Confirm Administered Dose 1 mg .ROUTE .STK-MED ONE Stop: 11/06/17 22:19 Propofol (Diprivan 20 Ml) Confirm Administered Dose 200 mg .ROUTE .STK-MED ONE Stop: 11/06/17 21:43 Rocuronium Miller (Zemuron) Confirm Administered Dose 100 mg .ROUTE .STK-MED ONE Stop: 11/06/17 21:42 Sodium Chloride (Saline Flush) 10 ml FLUSH ASDIRECTED PRN PRN Reason: Keep Vein Open Sodium Chloride (Saline Flush) 2.5 ml FLUSH ASDIRECTED PRN PRN Reason: Keep Vein Open Succinylcholine Chloride (Quelicin) Confirm Administered Dose 200 mg .ROUTE .STK -MED ONE Stop: 11/06/17 21:42 Vasopressin (Vasopressin) Confirm Administered Dose 20 units .ROUTE .STK-MED ONE Stop: 11/06/17 22:23 - Exam Wound/Incisions: Healing Well, Dressing Dry and Intact General: Alert, Oriented, Cooperative, Mild Distress Lungs: Clear to Auscultation, Normal Respiratory Effort Cardiovascular: Regular Rate, Regular Rhythm GI/Abdominal Exam: Soft, Non-Tender, No Distention, No Mass Extremities: Normal Inspection, Normal Range of Motion, No Pedal Edema Skin: Warm, Dry, Intact Psy/Mental Status: Alert, Normal Affect, Normal Mood - Problem List & Annotations (1) Appendicitis SNOMED Code(s): 54864158 Code(s): K37 - UNSPECIFIED APPENDICITIS Status: Acute Current Visit: Yes (2) Septic shock SNOMED Code(s): 89666267 Code(s): A41.9 - SEPSIS, UNSPECIFIED ORGANISM; R65.21 - SEVERE SEPSIS WITH SEPTIC SHOCK Status: Acute Current Visit: Yes (3) Acute renal injury SNOMED Code(s): 87692136 Code(s): N17.9 - ACUTE KIDNEY FAILURE, UNSPECIFIED Status: Acute Current Visit: Yes - Problem List Review Problem List Initiated/Reviewed/Updated: Yes - My Orders Last 24 Hours: Active Orders 24 hr Category Date Time Status Patient Status [ADT] Routine ADT 11/06/17 23:57 Active Cardiac Monitoring [RC] Q8H Care 11/06/17 23:57 Active Intake and Output [RC] Q4HR Care 11/06/17 23:59 Active Notify Provider Vital Signs [RC] PRN Care 11/06/17 23:59 Active Oxygen Therapy [RC] PRN Care 11/06/17 23:57 Active Pulse Oximetry [RC] CONTINUOUS Care 11/06/17 23:59 Active RT Aerosol Therapy [RC] ASDIRECTED Care 11/07/17 00:01 Active RT Incentive Spirometry [RC] ASDIRECTED Care 11/06/17 23:57 Active Up ad Philomena [RC] ASDIRECTED Care 11/06/17 23:57 Active Urinary Catheter Assessment [RC] Q4H Care 11/06/17 23:57 Active Vital Signs [RC] Q1H Care 11/06/17 23:57 Active Respiratory Care Assess and Treatment [CONS] Routine Cons 11/07/17 23:57 Active Nothing Per Oral Diet [DIET] Diet 11/06/17 Dinner Active Chest 1V Frontal [CR] Routine Exams 11/07/17 07:41 Taken LACTIC ACID,WHOLE BLOOD [BG] Routine Lab 11/07/17 11:06 Received UA W/MICROSCOPIC [URIN] Stat Lab 11/06/17 18:40 Ordered Acetaminophen/HYDROcodone [[place] 325-5 MG] Med 11/06/17 23:57 Active 2 tab PO Q4H PRN Albuterol/Ipratropium [DuoNeb 3.0-0.5 MG/3 ML] Med 11/07/17 00:01 Active 3 ml NEB Q4HRRT PRN HYDROmorphone [Dilaudid] Med 11/06/17 23:57 Active 0.5 mg IVPUSH Q1H PRN Lactated Ringers [Ringers, Lactated] 1,000 ml Med 11/06/17 21:30 Active IV ASDIRECTED Norepinephrine Bit/0.9 % NaCl [Norepinephr-0.9% NaCl 4 Med 11/06/17 23:15 Active mg/250] 4 mg in 250 ml IV TITRATE Ondansetron [Zofran] Med 11/06/17 23:57 Active 4 mg IVPUSH Q6H PRN Piperacillin/Tazobactam [Piperacil-Tazobact] 3.375 gm Med 11/07/17 12:00 Active Sodium Chloride 0.9% [Normal Saline] 50 ml IV Q6H Sodium Chloride 0.9% [Saline Flush] Med 11/06/17 18:33 Active 10 ml FLUSH ASDIRECTED PRN Sodium Chloride 0.9% [Saline Flush] Med 11/06/17 18:33 Active 2.5 ml FLUSH ASDIRECTED PRN Vasopressin 50 units Med 11/06/17 23:45 Active Sodium Chloride 0.9% [Normal Saline] 47.5 ml IV TITRATE diphenhydrAMINE [Benadryl] Med 11/06/17 23:57 Active 25 mg IVPUSH Q4H PRN Peripheral IV Insertion Adult [OM.PC] Urgent Oth 11/06/17 23:57 Ordered Saline Lock Insert [OM.PC] Stat Oth 11/06/17 18:32 Ordered Resuscitation Status Routine Resus Stat 11/06/17 23:57 Ordered Medication Orders Hydrocodone Bitart/Acetaminophen ([place] 325-5 Mg) 2 tab PO Q4H PRN PRN Reason: Pain (moderate 4-6) Last Admin: 11/07/17 10:17 Dose: 2 tab Admin: 11/07/17 05:20 Dose: 2 tab Albuterol/Ipratropium (Duoneb 3.0-0.5 Mg/3 Ml) 3 ml NEB Q4HRRT PRN PRN Reason: Shortness of Breath Last Admin: 11/07/17 08:04 Dose: 3 ml Diphenhydramine HCl (Benadryl) 25 mg IVPUSH Q4H PRN PRN Reason: Itching Hydromorphone HCl (Dilaudid) 0.5 mg IVPUSH Q1H PRN PRN Reason: Pain (severe 7-10) Lactated Ringer's (Ringers, Lactated) 1,000 mls @ 200 mls/hr IV ASDIRECTED DARRELL Last Admin: 11/07/17 11:07 Dose: 200 mls/hr Infusion: 11/07/17 11:02 Dose: 200 mls/hr Admin: 11/07/17 06:02 Dose: 200 mls/hr Infusion: 11/07/17 06:02 Dose: 200 mls/hr Admin: 11/07/17 01:40 Dose: 200 mls/hr Infusion: 11/07/17 01:40 Dose: 50 mls/hr Admin: 11/06/17 21:30 Dose: 50 mls/hr Norepinephrine Bitartrate (Norepinephr-0.9% Nacl 4 Mg/250) 4 mg in 250 mls @ 7.5 mls/hr IV TITRATE DARRELL; Protocol Last Titration: 11/07/17 08:51 Dose: 1 mcg/min, 3.75 mls/hr Admin: 11/07/17 08:18 Dose: 2 mcg/min, 7.5 mls/hr Vasopressin 50 units/ Sodium (Chloride) 50 mls @ 0.6 mls/hr IV TITRATE DARRELL; Protocol Last Titration: 11/07/17 05:45 Dose: 0.07 units/min, 4.2 mls/hr Titration: 11/07/17 02:17 Dose: 0.08 units/min, 4.8 mls/hr Titration: 11/07/17 01:10 Dose: 0.07 units/min, 4.2 mls/hr Admin: 11/07/17 00:04 Dose: 0.01 units/min, 0.6 mls/hr Piperacillin Sod/Tazobactam (Sod 3.375 gm/ Sodium Chloride) 50 mls @ 100 mls/ hr IV Q6H DARRELL Ondansetron HCl (Zofran) 4 mg IVPUSH Q6H PRN PRN Reason: Nausea/Vomiting Last Admin: 11/07/17 07:40 Dose: 4 mg Sodium Chloride (Saline Flush) 10 ml FLUSH ASDIRECTED PRN PRN Reason: Keep Vein Open Sodium Chloride (Saline Flush) 2.5 ml FLUSH ASDIRECTED PRN PRN Reason: Keep Vein Open - Plan Plan (Free Text/Narrative):: Patient underwent an appendectomy for umcomplicated, non-perforated appendicitis. Upon induction the patient became profroundly hypotensive requiring pressors. He received 3L of fluid during the case. Post operatively he recieved another 1L in the PACU and was on levophed and vaso. He was weaned off levophed and admitted to the ICU. This morning his lactate was elevated at 3.1. A central line and arterial line were placed and he was started on levophed again. His BP improved and his 11am lactate is now 1.8. His abdomen is soft and nontender. He is only minimally tender over his incisions. His UOP is excellent and CVP is >10. His BUN and Cr are improving. He most likely developed septic shock as a result of the appendicitis. It is strange that he has had such a profound systemic inflammatory response to a relatively straightforward infection. He is slowly improving and will stay in ICU for today. Pain: IV dilaudid, po norco prn pain Cards: Wean off vasopressin and levophed as tolerated. MAP goal >65 Pulmonary: Has history of asthma. CXR after line placement shows clear lung lópez. Duonebs q 4hr prn shortness of breath GI: Npo other than sips with meds and ice chips until off pressors. Ok to advance diet after that. Renal: BUN/Cr elevated on admission. Improving. Will decrease maintenance fluids to 100ml/hr. UOP adequate. Vance to stay in until off pressors. Ok to remove catheter after that. Heme: stable ID: Zosyn IV q hr given his profound response to septic insult. Will stop once WBC normal. Px: Lovenox tonight.
[2017-11-07] MEDS: Piperacillin/Tazobactam 3.375 GM in Sodium Chloride 0.9% 50 ML IV SCH ×3 (12:06→23:03)
--- NOTE | 2017-11-07 13:26 | CR ---
EXAM DATE: 11/07/17 PATIENT'S AGE: 37 Patient: BRENDA CROOKS Facility: [place], [place] Site . Site : [id number] Study: XRay Chest [id number]/07/2017 8:05:50 AM Ordering Physician: Petra Looney Final Report: Indication: Central line placement Technique: Chest 1 view Comparison: None. Findings/Impression: Cardiovascular and mediastinum: Left IJ central line is in satisfactory position with the tip in the low SVC. Heart size and pulmonary vasculature are normal. Lungs and pleural space: Lungs are clear. No sign of infiltrate or mass. No sign of pleural effusion. No pneumothorax. Bones and soft tissues: No acute findings. Dictated by Oleksandr Solo MD @ 11/07/2017 8:07:59 AM Dictated by: Oleksandr Solo MD @ 11/07/2017 08:08:05 (Electronic Signature) Report Signed by Proxy. [email or web address]
[2017-11-07] MEDS: Pantoprazole 40 MG Tab.CR PO SCH (16:08)
--- NOTE | 2017-11-07 17:03 | OR ---
SURGEON: MIKA WAHL MD DATE OF PROCEDURE: 11/07/2017 PREOPERATIVE DIAGNOSIS: Septic shock. POSTOPERATIVE DIAGNOSIS: Septic shock. PROCEDURE PERFORMED: Left internal jugular central line placement. ANESTHESIA: Local. ESTIMATED BLOOD LOSS: 5 mL. FINDINGS: Left internal jugular central line placement. COMPLICATIONS: None. INDICATIONS: The patient is a 37-year-old male, who underwent an uncomplicated appendectomy for non-perforated appendicitis last night. Postoperatively, the patient has required vasopressin in order to keep his blood pressure up. This morning, his lactate has increased. For better, I discussed with the patient the need for central venous access to monitor his fluid status as well as give him a wider range of pressors. We discussed the procedure, expected perioperative course, and the risks including bleeding, infection, or damage to surrounding structures including hemothorax or pneumothorax. The patient verbalized understanding and wishes to proceed. PROCEDURE IN DETAIL: The patient was met in his ICU bed. The ICU bed was placed into reverse Trendelenburg position and I used an ultrasound to verify the vascular anatomy on the left side of the neck. I was able to clearly see the left internal jugular vein and the associated left carotid artery. The neck and upper chest were prepped and draped in usual standard fashion. Using a sterile ultrasound probe, I then re-identified my vascular anatomy. I anesthetized the area overlying this with 5 mL of 1% lidocaine plain. A guide needle was then placed into the left internal jugular vein under ultrasound guidance. A brisk return of venous blood was noted. A guidewire was placed down the guide needle into the left internal jugular vein and passed down into the superior vena cava. The guide needle was removed. An 11 blade was used to make a oj in the skin overlying the guidewire. A dilator was then passed down the guidewire into the left internal jugular vein to dilate the tract. The dilator was then removed and a triple-lumen catheter placed over the guidewire. The guidewire was removed and brisk venous return was noted in all 3 vascular access sites. These were then flushed with normal saline. The catheter was secured to the skin at 18 cm. 3-0 silk sutures were used to suture this in place. Sterile dressings were applied. The patient tolerated the procedure well. Post procedural chest x-ray showed good placement of the catheter with no complications. BERNICE / RAMEZ /[id number] MTDD
[2017-11-08] MEDS: Acetaminophen/HYDROcodone 325-5 MG Tab PO PRN ×4 (00:14→20:37)
[2017-11-08] MEDS: Piperacillin/Tazobactam 3.375 GM in Sodium Chloride 0.9% 50 ML IV SCH (05:21)
[2017-11-08] MEDS: Lactated Ringers 1,000 ML IV SCH (05:58)
[2017-11-08 06:06] LABS: CHLORIDE,CL 106 mmol/L (98-107); SODIUM,NA 141 mmol/L (136-148)
[2017-11-08] MEDS: Pantoprazole 40 MG Tab.CR PO SCH ×2 (06:31→17:21)
[2017-11-08] MEDS ORDERED: HYDROmorphone 1 MG/ML Syringe IVPUSH PRN (07:07)
[2017-11-08] MEDS: Levofloxacin 500 MG Tab PO SCH (07:38)
[2017-11-08] MEDS: metroNIDAZOLE 250 MG Tab PO SCH ×3 (07:39→19:23)
[2017-11-08] MEDS: Multivitamin Tab PO SCH ×2 (07:39→08:08)
--- NOTE | 2017-11-08 10:21 | PCM.SURGPN ---
- General Info Date of Service: 11/08/17 Date of Surgery/Procedure: 11/06/17 POD#: 2 Functional Status: Reports: Tolerating Diet, Urinating, Other (Patient is having pain along his incisions, but has not received any pain medications yet this morning.) - Review of Systems General: Reports: No Symptoms Pulmonary: Reports: Other (Pain with deep breathing and coughing in his abdomen) Cardiovascular: Reports: No Symptoms Gastrointestinal: Reports: Abdominal Pain (Along incisions) - Patient Data Vitals - Most Recent: Last Vital Signs Temp 37.0 C 11/08/17 08:00 Pulse 80 11/07/17 07:57 Resp 17 11/08/17 10:00 BP 108/57 L 11/08/17 10:00 Pulse Ox 94 L 11/08/17 10:00 Weight - Most Recent: 96.388 kg I&O - Last 24 Hours: Intake & Output 11/07/17 11/08/17 11/08/17 22:59 06:59 14:59 Intake Total 974 1285 172 Output Total 1325 335 250 Balance -351 435 -78 Lab Results Last 24 Hrs: Laboratory Results - last 24 hr 11/07/17 11/07/17 11/08/17 Range/Units 11:06 17:08 05:07 WBC 7.59 (4.0-11.0) K/uL RBC 3.85 L (4.50-5.90) M/uL Hgb 11.2 L (13.0-17.0) g/dL Hct 34.3 L (38.0-50.0) % MCV 89.1 (80.0-98.0) fL MCH 29.1 (27.0-32.0) pg MCHC 32.7 (31.0-37.0) g/dL RDW Std Deviation 47.8 (28.0-62.0) fl RDW Coeff of Chalino 15 (11.0-15.0) % Plt Count 147 L (150-400) K/uL MPV 10.70 (7.40-12.00) fL Neut % (Auto) 68.1 (48.0-80.0) % Lymph % (Auto) 25.0 (16.0-40.0) % [place] % (Auto) 6.7 (0.0-15.0) % Eos % (Auto) 0.1 (0.0-7.0) % Baso % (Auto) 0.1 (0.0-1.5) % Neut # (Auto) 5.2 (1.4-5.7) K/uL Lymph # (Auto) 1.9 (0.6-2.4) K/uL [place] # (Auto) 0.5 (0.0-0.8) K/uL Eos # (Auto) 0.0 (0.0-0.7) K/uL Baso # (Auto) 0.0 (0.0-0.1) K/uL Nucleated RBC % 0.0 /100WBC Nucleated RBCs # 0 K/uL Lactate 1.8 0.8 (0.20-2.00) mmol/L Sodium (136-148) mmol/L Potassium (3.5-5.1) mmol/L Chloride (98-107) mmol/L Carbon Dioxide (21.0-32.0) mmol/L BUN (7.0-18.0) mg/dL Creatinine (0.8-1.3) mg/dL Est Cr Clr Drug Dosing mL/min Estimated GFR (MDRD) ml/min Glucose (74-106) mg/dL Calcium (8.5-10.1) mg/dL 11/08/17 Range/Units 05:07 WBC (4.0-11.0) K/uL RBC (4.50-5.90) M/uL Hgb (13.0-17.0) g/dL Hct (38.0-50.0) % MCV (80.0-98.0) fL MCH (27.0-32.0) pg MCHC (31.0-37.0) g/dL RDW Std Deviation (28.0-62.0) fl RDW Coeff of Chalino (11.0-15.0) % Plt Count (150-400) K/uL MPV (7.40-12.00) fL Neut % (Auto) (48.0-80.0) % Lymph % (Auto) (16.0-40.0) % [place] % (Auto) (0.0-15.0) % Eos % (Auto) (0.0-7.0) % Baso % (Auto) (0.0-1.5) % Neut # (Auto) (1.4-5.7) K/uL Lymph # (Auto) (0.6-2.4) K/uL [place] # (Auto) (0.0-0.8) K/uL Eos # (Auto) (0.0-0.7) K/uL Baso # (Auto) (0.0-0.1) K/uL Nucleated RBC % /100WBC Nucleated RBCs # K/uL Lactate (0.20-2.00) mmol/L Sodium 141 (136-148) mmol/L Potassium 3.8 (3.5-5.1) mmol/L Chloride 106 (98-107) mmol/L Carbon Dioxide 30.3 (21.0-32.0) mmol/L BUN 10 (7.0-18.0) mg/dL Creatinine 1.2 (0.8-1.3) mg/dL Est Cr Clr Drug Dosing 80.33 mL/min Estimated GFR (MDRD) > 60.0 ml/min Glucose 105 (74-106) mg/dL Calcium 8.1 L (8.5-10.1) mg/dL Med Orders - Current: Current Medications Hydrocodone Bitart/Acetaminophen ([place] 325-5 Mg) 2 tab PO Q4H PRN PRN Reason: Pain (moderate 4-6) Last Admin: 11/08/17 07:39 Dose: 2 tab Albuterol/Ipratropium (Duoneb 3.0-0.5 Mg/3 Ml) 3 ml NEB Q4HRRT PRN PRN Reason: Shortness of Breath Last Admin: 11/07/17 08:04 Dose: 3 ml Diphenhydramine HCl (Benadryl) 25 mg IVPUSH Q4H PRN PRN Reason: Itching Hydromorphone HCl (Dilaudid) 0.5 mg IVPUSH Q1H PRN PRN Reason: Pain (severe 7-10) Levofloxacin (Levaquin) 750 mg PO Q24H [facility] Last Admin: 11/08/17 07:38 Dose: 750 mg Metronidazole (Metronidazole) 250 mg PO Q6H [facility] Last Admin: 11/08/17 07:39 Dose: 250 mg Multivitamins/Minerals/Vitamin C (Tab-A-Angie) 1 tab PO DAILY [facility] Last Admin: 11/08/17 08:08 Dose: Not Given Ondansetron HCl (Zofran) 4 mg IVPUSH Q6H PRN PRN Reason: Nausea/Vomiting Last Admin: 11/07/17 23:00 Dose: 4 mg Pantoprazole Sodium (Protonix) 40 mg PO BIDAC [facility] Last Admin: 11/08/17 06:31 Dose: 40 mg Sodium Chloride (Saline Flush) 10 ml FLUSH ASDIRECTED PRN PRN Reason: Keep Vein Open Sodium Chloride (Saline Flush) 2.5 ml FLUSH ASDIRECTED PRN PRN Reason: Keep Vein Open Discontinued Medications Albuterol (Proventil Neb Soln) 2.5 mg NEB ONETIME ONE Stop: 11/06/17 21:33 Last Admin: 11/06/17 21:51 Dose: 2.5 mg Albuterol/Ipratropium (Duoneb 3.0-0.5 Mg/3 Ml) 3 ml NEB ONETIME ONE Stop: 11/06/17 23:57 Last Admin: 11/07/17 00:13 Dose: 3 ml Bupivacaine HCl (Sensorcaine-Mpf 0.5%) Confirm Administered Dose 20 ml .ROUTE .STK-MED ONE Stop: 11/06/17 21:48 Famotidine (Pepcid) 20 mg IVPUSH ONETIME ONE Stop: 11/06/17 21:33 Last Admin: 11/06/17 21:39 Dose: 20 mg Fentanyl (Sublimaze) Confirm Administered Dose 250 mcg .ROUTE .STK-MED ONE Stop: 11/06/17 21:43 Glycopyrrolate (Robinul) Confirm Administered Dose 0.2 mg .ROUTE .STK-MED ONE Stop: 11/06/17 22:53 Hydromorphone HCl (Dilaudid) 1 mg IM ONETIME ONE Stop: 11/06/17 18:34 Last Admin: 11/06/17 18:55 Dose: Not Given Hydromorphone HCl (Dilaudid) 1 mg IV ONETIME ONE Stop: 11/06/17 18:37 Last Admin: 11/06/17 18:55 Dose: 1 mg Hydromorphone HCl (Dilaudid) 1 mg IV ONETIME ONE Stop: 11/06/17 20:37 Last Admin: 11/06/17 20:45 Dose: 1 mg Hydromorphone HCl (Dilaudid) 0.5 mg IVPUSH Q1H PRN PRN Reason: Pain (severe 7-10) Sodium Chloride (Normal Saline) 1,000 mls @ 999 mls/hr IV STAT ONE Stop: 11/06/17 20:34 Last Admin: 11/06/17 20:46 Dose: 999 mls/hr Piperacillin Sod/Tazobactam (Sod 3.375 gm/ Sodium Chloride) 50 mls @ 100 mls/ hr IV ONETIME ONE Stop: 11/06/17 21:42 Last Admin: 11/06/17 21:34 Dose: 100 mls/hr Lactated Ringer's (Ringers, Lactated) 1,000 mls @ 100 mls/hr IV ASDIRECTED [facility]ARRELL Last Infusion: 11/08/17 07:42 Dose: 0 mls/hr Vasopressin 100 units/ Sodium (Chloride) 100 mls @ 0.6 mls/hr IV TITRATE DARRELL; Protocol Norepinephrine Bitartrate (Norepinephr-0.9% Nacl 4 Mg/250) 4 mg in 250 mls @ 7.5 mls/hr IV TITRATE DARRELL; Protocol Last Titration: 11/07/17 15:45 Dose: 0 mcg/min, 0 mls/hr Vasopressin 50 units/ Sodium (Chloride) 50 mls @ 0.6 mls/hr IV TITRATE DARRELL; Protocol Last Titration: 11/07/17 08:18 Dose: 0 units/min, 0 mls/hr Piperacillin Sod/Tazobactam (Sod 3.375 gm/ Sodium Chloride) 50 mls @ 100 mls/ hr IV Q8H [facility] Last Admin: 11/07/17 05:56 Dose: 100 mls/hr Piperacillin Sod/Tazobactam (Sod 3.375 gm/ Sodium Chloride) 50 mls @ 100 mls/ hr IV Q6H [facility] Last Admin: 11/08/17 05:21 Dose: 100 mls/hr Iopamidol (Isovue Multipack-370 (76%)) 200 ml IVPUSH ONETIME STA Stop: 11/06/17 20:06 Last Admin: 11/06/17 20:06 Dose: 100 ml Lidocaine (Xylocaine-Mpf 2%) Confirm Administered Dose 5 ml .ROUTE .STK-MED ONE Stop: 11/06/17 21:42 Lidocaine (Xylocaine-Mpf 2%) Confirm Administered Dose 5 ml .ROUTE .STK-MED ONE Stop: 11/07/17 06:55 Last Admin: 11/07/17 08:02 Dose: Not Given Midazolam HCl (Versed 1 Mg/Ml) Confirm Administered Dose 2 mg .ROUTE .STK-MED ONE Stop: 11/06/17 21:43 Ondansetron HCl (Zofran) 4 mg IVPUSH ONETIME ONE Stop: 11/06/17 18:34 Last Admin: 11/06/17 18:47 Dose: 4 mg Ondansetron HCl (Zofran) 4 mg IVPUSH ONETIME ONE Stop: 11/06/17 20:37 Last Admin: 11/06/17 20:45 Dose: 4 mg Ondansetron HCl (Zofran) Confirm Administered Dose 4 mg .ROUTE .STK-MED ONE Stop: 11/06/17 21:42 Phenylephrine HCl (Phenylephrine In Ns 100 Mcg/Ml) Confirm Administered Dose 1 mg .ROUTE .STK-MED ONE Stop: 11/06/17 22:19 Propofol (Diprivan 20 Ml) Confirm Administered Dose 200 mg .ROUTE .STK-MED ONE Stop: 11/06/17 21:43 Rocuronium [place] (Zemuron) Confirm Administered Dose 100 mg .ROUTE .STK-MED ONE Stop: 11/06/17 21:42 Sodium Chloride (Saline Flush) 10 ml FLUSH ASDIRECTED PRN PRN Reason: Keep Vein Open Sodium Chloride (Saline Flush) 2.5 ml FLUSH ASDIRECTED PRN PRN Reason: Keep Vein Open Succinylcholine Chloride (Quelicin) Confirm Administered Dose 200 mg .ROUTE .STK -MED ONE Stop: 11/06/17 21:42 Vasopressin (Vasopressin) Confirm Administered Dose 20 units .ROUTE .STK-MED ONE Stop: 11/06/17 22:23 - Exam Wound/Incisions: Healing Well Quality Assessment: Supplemental Oxygen General: Alert, Oriented, Cooperative Lungs: Clear to Auscultation, Normal Respiratory Effort Cardiovascular: Regular Rate, Regular Rhythm GI/Abdominal Exam: Soft, Non-Tender, No Distention, No Mass Skin: Warm, Dry, Intact Neurological: No New Focal Deficit Psy/Mental Status: Alert, Normal Affect - Problem List & Annotations (1) Appendicitis SNOMED Code(s): 57889872 Code(s): K37 - UNSPECIFIED APPENDICITIS Status: Acute Current Visit: Yes (2) Septic shock SNOMED Code(s): 68159092 Code(s): A41.9 - SEPSIS, UNSPECIFIED ORGANISM; R65.21 - SEVERE SEPSIS WITH SEPTIC SHOCK Status: Acute Current Visit: Yes (3) Acute renal injury SNOMED Code(s): 59014632 Code(s): N17.9 - ACUTE KIDNEY FAILURE, UNSPECIFIED Status: Acute Current Visit: Yes - Problem List Review Problem List Initiated/Reviewed/Updated: Yes - My Orders Last 24 Hours: Active Orders 24 hr Category Date Time Status Communication Order [RC] ROUTINE Care 11/08/17 07:25 Active Respiratory Care Assess and Treatment [CONS] Routine Cons 11/07/17 23:57 Active Clear Liquid Diet [DIET] Diet 11/07/17 Dinner Active Regular Diet [DIET] Diet 11/08/17 Lunch Active HYDROmorphone [Dilaudid] Med 11/08/17 07:07 Active 0.5 mg IVPUSH Q1H PRN Levofloxacin [Levaquin] Med 11/08/17 07:30 Active 750 mg PO Q24H Multivitamins [Tab-A-Angie] Med 11/08/17 09:00 Active 1 tab PO DAILY Pantoprazole [ProTONIX] Med 11/07/17 17:00 Active 40 mg PO BIDAC metroNIDAZOLE Med 11/08/17 07:30 Active 250 mg PO Q6H Arterial Line Discontinue [OM.PC] Routine Oth 11/08/17 07:24 Ordered Central Venous Line Discontinue [OM.PC] Routine Oth 11/08/17 07:24 Ordered Medication Orders Hydrocodone Bitart/Acetaminophen ([place] 325-5 Mg) 2 tab PO Q4H PRN PRN Reason: Pain (moderate 4-6) Last Admin: 11/08/17 07:39 Dose: 2 tab Admin: 11/08/17 00:14 Dose: 2 tab Admin: 11/07/17 20:24 Dose: 2 tab Admin: 11/07/17 16:08 Dose: 2 tab Admin: 11/07/17 10:17 Dose: 2 tab Admin: 11/07/17 05:20 Dose: 2 tab Albuterol/Ipratropium (Duoneb 3.0-0.5 Mg/3 Ml) 3 ml NEB Q4HRRT PRN PRN Reason: Shortness of Breath Last Admin: 11/07/17 08:04 Dose: 3 ml Diphenhydramine HCl (Benadryl) 25 mg IVPUSH Q4H PRN PRN Reason: Itching Hydromorphone HCl (Dilaudid) 0.5 mg IVPUSH Q1H PRN PRN Reason: Pain (severe 7-10) Levofloxacin (Levaquin) 750 mg PO Q24H [facility] Last Admin: 11/08/17 07:38 Dose: 750 mg Metronidazole (Metronidazole) 250 mg PO Q6H [facility] Last Admin: 11/08/17 07:39 Dose: 250 mg Multivitamins/Minerals/Vitamin C (Tab-A-Angie) 1 tab PO DAILY [facility] Last Admin: 11/08/17 08:08 Dose: Admin: 11/08/17 07:39 Dose: 1 tab Ondansetron HCl (Zofran) 4 mg IVPUSH Q6H PRN PRN Reason: Nausea/Vomiting Last Admin: 11/07/17 23:00 Dose: 4 mg Admin: 11/07/17 07:40 Dose: 4 mg Pantoprazole Sodium (Protonix) 40 mg PO BIDAC [facility] Last Admin: 11/08/17 06:31 Dose: 40 mg Admin: 11/07/17 16:08 Dose: 40 mg Sodium Chloride (Saline Flush) 10 ml FLUSH ASDIRECTED PRN PRN Reason: Keep Vein Open Sodium Chloride (Saline Flush) 2.5 ml FLUSH ASDIRECTED PRN PRN Reason: Keep Vein Open - Plan Plan (Free Text/Narrative):: The patient's abdominal pain this morning is due to not receiving pain medications overnight. His labs this morning. All appear improved. He has been off of pressors since yesterday afternoon. Pain: [place] and IV dialudid prn Cards: Patient has been off pressors since yesterday. His arterial line blood pressure measurement is 20 points higher on the systolic side. Then his cuff is reading. I believe his arterial line pressure readings. Since his lactate is now normal and he appears stable, we can remove the arterial line. I will except blood pressure cuff readings that are a little bit lower, knowing that they do not correlate well with his true blood pressure. It is okay as long as his map readings are greater than 55 via the blood pressure cuff. Central line can be removed as well today. Pulmonary: Encourage the patient to be up and out of bed today. I S use every hour. Wean off of oxygen as tolerated. GI: Patient can start regular diet today. Will order dulcolax tablets daily to promote regular bowel habits. renal: Urine output was excellent yesterday and his creatinine and BUNs have come down. We'll discontinue IV fluids and Vance catheter was removed yesterday. ID: White blood count is normal. Will switch to Levaquin and metronidazole which will cover him for any abdominal infection as well as his H pylori infection. He will be taking 40 mg of pantoprazole twice a day. Heme: Stable Prophylaxis: Lovenox 40 mg IV daily
[2017-11-08] MEDS: Enoxaparin 40 MG/0.4 ML Syringe SUBCUT SCH (11:16)
[2017-11-08] MEDS: Bisacodyl 5 MG Tab PO SCH (11:16)
--- NOTE | 2017-11-08 11:28 | OR ---
SURGEON: MIKA WAHL MD DATE OF PROCEDURE: 11/07/2017 PREOPERATIVE DIAGNOSIS: Appendicitis. POSTOPERATIVE DIAGNOSIS: Appendicitis. PROCEDURE PERFORMED: Laparoscopic appendectomy. ANESTHESIA: General endotracheal anesthesia. FLUIDS: 3000 mL of crystalloid. ESTIMATED BLOOD LOSS: 5 mL. URINE OUTPUT: 150 mL. FINDINGS: Dilated and inflamed appendix, nonperforated. COMPLICATIONS: Hypotension upon induction. INDICATION: The patient is a 37-year-old male, who presented with a one-day history of generalized abdominal pain. He presented to the emergency room. He was found to have a leukocytosis of 13,[address] of the abdomen and pelvis showed acute appendicitis. The patient and I discussed the pathophysiology of appendicitis. I explained the treatment for this is appendectomy. We discussed the laparoscopic and open approaches. I explained that should I be unable to complete this safely laparoscopically, I will convert to open. We discussed the expected perioperative course as well as the risks including bleeding, infection, or damage to surrounding structures including perforation. The patient verbalized understanding and wishes to proceed. PROCEDURE IN DETAIL: The patient was brought into the OR and placed on the OR table in supine position. A time-out was completed verifying the patient's name, age, date of , allergies, and procedure to be performed. General endotracheal anesthesia was induced. Upon induction, the patient's blood pressure decreased to very low levels. He was given a fluid bolus and started on Levophed and vasopressin. This brought his blood pressure back up. The left arm was tucked at the patient's side and a Vance catheter was placed. The abdomen was prepped and draped in usual standard fashion. Once the patient's blood pressure and heart rate had stabilized, we began the procedure. I anesthetized an area 2 fingerbreadths below the left subcostal margin along the midclavicular line with 0.5% Marcaine plain. A 1 cm incision was made over this area. A 5 mm optical trocar was used to obtain entry into the abdomen under direct visualization. All layers of the abdominal wall were visualized on the way in. The abdomen was then insufflated to a pressure of 13 mmHg. The 5 mm 30-degree scope was inserted into the abdomen and I inspected the area underneath my initial trocar placement. No damage to surrounding structures was noted. A 5 mm trocar was placed under direct visualization just left and lateral to the umbilicus. A 12 mm Hoda trocar was placed in similar fashion in the left lower quadrant. The patient was placed in Trendelenburg position and airplaned slightly to the left. I turned my attention to the right lower quadrant. The small bowel was swept away and I was able to identify the cecum. The tenia was followed down to the base of the appendix. The tip of the appendix was noted and grasped with an atraumatic grasper. The appendix appeared dilated and inflamed, but non- perforated. The appendiceal mesentery was taken down using a Harmonic Scalpel. Once I reached the base of the appendix, I cleared away any surrounding attachments. The better mobilize of cecum to allow better manipulation of the appendix. I used a Harmonic Scalpel to take down its retroperitoneal attachments. An endoscopic stapling device was then brought into the field. A 45 mm blue load of kavon was fired across the base of the appendix. The appendix was placed in an EndoCatch bag and removed through the left lower quadrant port site. I replaced my 12 mm port and reinspected the operative field. There was a small amount of oozing along the appendiceal mesentery. This area was irrigated and once all the fluid was suctioned away, no further bleeding was noted. I inspected the entire abdomen including the liver, stomach, pelvis, and small bowel and did not note any abnormalities. I then reinspected my operative field and he was hemostatic. The 12 mm Hoda trocar site was closed with an interrupted 0 Vicryl suture using a Paul-Milagro device. The 5 mm trocars were removed under direct visualization, the abdomen allowed to desufflate. The left lower quadrant incision site was closed with interrupted 3-0 Vicryl in the subcutaneous fat and a running 4-0 Monocryl stitch in the skin. The 5 mm trocar sites were closed with interrupted 4-0 Monocryl sutures. Steri-Strips and sterile dressings were applied. The patient was transferred to the PACU. In the PACU, the patient was given another liter of bolus of fluids and the Levophed was able to be weaned off. The patient did require a DuoNeb in the PACU after extubation due to some shortness of breath. The patient was transferred to the ICU afterwards in stable condition. BERNICE MYRICK /[id number]
--- NOTE | 2017-11-08 11:31 | OR ---
SURGEON: MIKA WAHL MD DATE OF PROCEDURE: 11/07/2017 PREOPERATIVE DIAGNOSIS: Acute appendicitis. POSTOPERATIVE DIAGNOSIS: Acute appendicitis. PROCEDURE PERFORMED: Laparoscopic appendectomy. ANESTHESIA: General endotracheal anesthesia. FLUIDS: 3000 mL crystalloid. ESTIMATED BLOOD LOSS: 5 mL. URINE OUTPUT: 150 mL. FINDINGS: Grossly enlarged and inflamed appendix, nonperforated. COMPLICATIONS: None. INDICATIONS: The patient is a 37-year-old male who presents with 1-day history of abdominal pain. He presented to the emergency room. He was found to have a leukocytosis of 13,000, and a CT of the abdomen and pelvis showed a nonperforated appendicitis. The patient and I discussed the pathophysiology of appendicitis. We discussed the treatment, which is appendectomy. DICTATION ENDS HERE. BERNICE MYRICK /[id number]
[2017-11-08] MEDS: Ondansetron 4 MG/2 ML SDV IVPUSH PRN (14:16)
[2017-11-08] MEDS: Cyclobenzaprine 5 MG Tab PO SCH ×2 (14:19→22:00)
[2017-11-09] MEDS: metroNIDAZOLE 250 MG Tab PO SCH ×2 (01:19→06:50)
[2017-11-09] MEDS: Cyclobenzaprine 5 MG Tab PO SCH (05:27)
[2017-11-09] MEDS: Acetaminophen/HYDROcodone 325-5 MG Tab PO PRN (06:48)
[2017-11-09] MEDS: Levofloxacin 500 MG Tab PO SCH (06:48)
[2017-11-09] MEDS: Pantoprazole 40 MG Tab.CR PO SCH (06:50)
[2017-11-09] MEDS: Multivitamin Tab PO SCH (08:50)
[2017-11-09] MEDS: Bisacodyl 5 MG Tab PO SCH (08:50)
--- NOTE | 2017-11-09 10:16 | PCM.DCSUM1 ---
Discharge Summary - Hospital Course Free Text/Narrative:: Patient is a 37 year old male who presented with acute appendicitis. He was taken to the OR for a laparoscopic appendectomy. Upon induction the patient became hypotensive requiring aggressive fluid resuscitation and pressors. The appendix was inflamed and enlarged, but not ruptured. He stayed in septic shock afterwards and required a central line and levophed gtt. At the end of POD #1 he was able to be weaned off pressors. He had some shortness of breath and was given nebulizers since he had a history of asthma. He was stable and transfered to the floor on POD #2. His diet was advanced to regular. His pain is controlled on oral medications. His vitals are stable and he is urinating. He was cleared for discharge. - Discharge Data Discharge Date: 11/09/17 Discharge Disposition: Home, Self-Care 01 Condition: Stable - Discharge Diagnosis/Problem(s) (1) Appendicitis SNOMED Code(s): 44453463 ICD Code: K37 - UNSPECIFIED APPENDICITIS Status: Acute Current Visit: Yes (2) Septic shock SNOMED Code(s): 44149850 ICD Code: A41.9 - SEPSIS, UNSPECIFIED ORGANISM; R65.21 - SEVERE SEPSIS WITH SEPTIC SHOCK Status: Acute Current Visit: Yes (3) Acute renal injury SNOMED Code(s): 30316011 ICD Code: N17.9 - ACUTE KIDNEY FAILURE, UNSPECIFIED Status: Acute Current Visit: Yes - Patient Summary/Data Operative Procedure(s) Performed: Laparoscopic appendectomy Consults: Consultations 11/07/17 23:57 Respiratory Care Assess and Treatment [CONS] Routine - Patient Instructions Diet: Regular Diet as Tolerated Activity: No Lifting Over 20 Pounds (for four weeks ), Rest and Relax Today Showering/Bathing: May Shower, No Tub Bathing/Swimming (for two weeks ) Wound/Incision Care: Keep Operative Site/Wound Site Clean and Dry Notify Provider of: Fever, Increased Pain, Swelling and Redness, Drainage, Nausea and/or Vomiting - Discharge Plan Prescriptions/Med Rec: Bisacodyl [Dulcolax] 5 mg PO DAILY #14 tablet Cyclobenzaprine [Flexeril] 5 mg PO TID PRN #30 tablet PRN Reason: Muscle Spasm Levofloxacin [Levaquin] 750 mg PO Q24H #12 tablet metroNIDAZOLE 250 mg PO Q6H #48 tablet Pantoprazole [ProTONIX] 40 mg PO BIDAC #24 tab.cr Home Medications: Home Meds Cyclobenzaprine [Flexeril] 5 mg PO TID PRN #30 tablet 11/08/17 [Rx] Levofloxacin [Levaquin] 750 mg PO Q24H #12 tablet 11/08/17 [Rx] Pantoprazole [ProTONIX] 40 mg PO BIDAC #24 tab.cr 11/08/17 [Rx] metroNIDAZOLE 250 mg PO Q6H #48 tablet 11/08/17 [Rx] Bisacodyl [Dulcolax] 5 mg PO DAILY #14 tablet 11/09/17 [Rx] Patient Handouts: Acetaminophen; Hydrocodone tablets or capsules, Cyclobenzaprine tablets, Bisacodyl tablets and capsules, Helicobacter Pylori Infection, Laparoscopic Appendectomy, Adult, Care After, [id number], Pantoprazole tablets, Levofloxacin tablets, Metronidazole tablets or capsules Referrals: Aure Lambert MD [Physician] - 11/17/17 9:45 am - Discharge Summary/Plan Comment DC Time >30 min.: No - General Info Date of Service: 11/09/17 Functional Status: Reports: Pain Controlled, Tolerating Diet, Ambulating, Urinating - Review of Systems General: Reports: No Symptoms Pulmonary: Reports: No Symptoms Cardiovascular: Reports: No Symptoms Gastrointestinal: Reports: No Symptoms Genitourinary: Reports: No Symptoms Musculoskeletal: Reports: No Symptoms Skin: Reports: No Symptoms Neurological: Reports: No Symptoms - Patient Data Vitals - Most Recent: Last Vital Signs Temp 36.5 C 11/09/17 07:31 Pulse 73 11/09/17 07:31 Resp 17 11/09/17 07:31 BP 116/56 L 11/09/17 07:31 Pulse Ox 98 11/09/17 07:31 Weight - Most Recent: 96.388 kg I&O - Last 24 hours: Intake & Output 11/08/17 11/09/17 11/09/17 22:59 06:59 14:59 Intake Total 600 Balance 600 Med Orders - Current: Current Medications Hydrocodone Bitart/Acetaminophen ([place] 325-5 Mg) 2 tab PO Q4H PRN PRN Reason: Pain (moderate 4-6) Last Admin: 11/09/17 06:48 Dose: 2 tab Albuterol/Ipratropium (Duoneb 3.0-0.5 Mg/3 Ml) 3 ml NEB Q4HRRT PRN PRN Reason: Shortness of Breath Last Admin: 11/07/17 08:04 Dose: 3 ml Bisacodyl (Dulcolax) 5 mg PO DAILY [facility] Last Admin: 11/09/17 08:50 Dose: 5 mg Cyclobenzaprine HCl (Flexeril) 5 mg PO TID [facility] Last Admin: 11/09/17 05:27 Dose: 5 mg Diphenhydramine HCl (Benadryl) 25 mg IVPUSH Q4H PRN PRN Reason: Itching Enoxaparin Sodium (Lovenox) 40 mg SUBCUT Q24H [facility] Last Admin: 11/08/17 11:16 Dose: 40 mg Hydromorphone HCl (Dilaudid) 0.5 mg IVPUSH Q1H PRN PRN Reason: Pain (severe 7-10) Levofloxacin (Levaquin) 750 mg PO Q24H [facility] Last Admin: 11/09/17 06:48 Dose: 750 mg Metronidazole (Metronidazole) 250 mg PO Q6H [facility] Last Admin: 11/09/17 06:50 Dose: 250 mg Multivitamins/Minerals/Vitamin C (Tab-A-Angie) 1 tab PO DAILY [facility] Last Admin: 11/09/17 08:50 Dose: 1 tab Ondansetron HCl (Zofran) 4 mg IVPUSH Q6H PRN PRN Reason: Nausea/Vomiting Last Admin: 11/08/17 14:16 Dose: 4 mg Pantoprazole Sodium (Protonix) 40 mg PO BIDAC [facility] Last Admin: 11/09/17 06:50 Dose: 40 mg Sodium Chloride (Saline Flush) 10 ml FLUSH ASDIRECTED PRN PRN Reason: Keep Vein Open Sodium Chloride (Saline Flush) 2.5 ml FLUSH ASDIRECTED PRN PRN Reason: Keep Vein Open Discontinued Medications Albuterol (Proventil Neb Soln) 2.5 mg NEB ONETIME ONE Stop: 11/06/17 21:33 Last Admin: 11/06/17 21:51 Dose: 2.5 mg Albuterol/Ipratropium (Duoneb 3.0-0.5 Mg/3 Ml) 3 ml NEB ONETIME ONE Stop: 11/06/17 23:57 Last Admin: 11/07/17 00:13 Dose: 3 ml Bupivacaine HCl (Sensorcaine-Mpf 0.5%) Confirm Administered Dose 20 ml .ROUTE .STK-MED ONE Stop: 11/06/17 21:48 Famotidine (Pepcid) 20 mg IVPUSH ONETIME ONE Stop: 11/06/17 21:33 Last Admin: 11/06/17 21:39 Dose: 20 mg Fentanyl (Sublimaze) Confirm Administered Dose 250 mcg .ROUTE .STK-MED ONE Stop: 11/06/17 21:43 Glycopyrrolate (Robinul) Confirm Administered Dose 0.2 mg .ROUTE .STK-MED ONE Stop: 11/06/17 22:53 Hydromorphone HCl (Dilaudid) 1 mg IM ONETIME ONE Stop: 11/06/17 18:34 Last Admin: 11/06/17 18:55 Dose: Not Given Hydromorphone HCl (Dilaudid) 1 mg IV ONETIME ONE Stop: 11/06/17 18:37 Last Admin: 11/06/17 18:55 Dose: 1 mg Hydromorphone HCl (Dilaudid) 1 mg IV ONETIME ONE Stop: 11/06/17 20:37 Last Admin: 11/06/17 20:45 Dose: 1 mg Hydromorphone HCl (Dilaudid) 0.5 mg IVPUSH Q1H PRN PRN Reason: Pain (severe 7-10) Sodium Chloride (Normal Saline) 1,000 mls @ 999 mls/hr IV STAT ONE Stop: 11/06/17 20:34 Last Admin: 11/06/17 20:46 Dose: 999 mls/hr Piperacillin Sod/Tazobactam (Sod 3.375 gm/ Sodium Chloride) 50 mls @ 100 mls/ hr IV ONETIME ONE Stop: 11/06/17 21:42 Last Admin: 11/06/17 21:34 Dose: 100 mls/hr Lactated Ringer's (Ringers, Lactated) 1,000 mls @ 100 mls/hr IV ASDIRECTED [facility] Last Infusion: 11/08/17 07:42 Dose: 0 mls/hr Vasopressin 100 units/ Sodium (Chloride) 100 mls @ 0.6 mls/hr IV TITRATE [facility]; Protocol Norepinephrine Bitartrate (Norepinephr-0.9% Nacl 4 Mg/250) 4 mg in 250 mls @ 7.5 mls/hr IV TITRATE [facility]RE[facility]; Protocol Last Titration: 11/07/17 15:45 Dose: 0 mcg/min, 0 mls/hr Vasopressin 50 units/ Sodium (Chloride) 50 mls @ 0.6 mls/hr IV TITRATE [facility]; Protocol Last Titration: 11/07/17 08:18 Dose: 0 units/min, 0 mls/hr Piperacillin Sod/Tazobactam (Sod 3.375 gm/ Sodium Chloride) 50 mls @ 100 mls/ hr IV Q8H [facility] Last Admin: 11/07/17 05:56 Dose: 100 mls/hr Piperacillin Sod/Tazobactam (Sod 3.375 gm/ Sodium Chloride) 50 mls @ 100 mls/ hr IV Q6H [facility] Last Admin: 11/08/17 05:21 Dose: 100 mls/hr Iopamidol (Isovue Multipack-370 (76%)) 200 ml IVPUSH ONETIME STA Stop: 11/06/17 20:06 Last Admin: 11/06/17 20:06 Dose: 100 ml Lidocaine (Xylocaine-Mpf 2%) Confirm Administered Dose 5 ml .ROUTE .STK-MED ONE Stop: 11/06/17 21:42 Lidocaine (Xylocaine-Mpf 2%) Confirm Administered Dose 5 ml .ROUTE .STK-MED ONE Stop: 11/07/17 06:55 Last Admin: 11/07/17 08:02 Dose: Not Given Midazolam HCl (Versed 1 Mg/Ml) Confirm Administered Dose 2 mg .ROUTE .STK-MED ONE Stop: 11/06/17 21:43 Ondansetron HCl (Zofran) 4 mg IVPUSH ONETIME ONE Stop: 11/06/17 18:34 Last Admin: 11/06/17 18:47 Dose: 4 mg Ondansetron HCl (Zofran) 4 mg IVPUSH ONETIME ONE Stop: 11/06/17 20:37 Last Admin: 11/06/17 20:45 Dose: 4 mg Ondansetron HCl (Zofran) Confirm Administered Dose 4 mg .ROUTE .STK-MED ONE Stop: 06/11/18 21:42 Phenylephrine HCl (Phenylephrine In Ns 100 Mcg/Ml) Confirm Administered Dose 1 mg .ROUTE .STK-MED ONE Stop: 11/06/17 22:19 Propofol (Diprivan 20 Ml) Confirm Administered Dose 200 mg .ROUTE .STK-MED ONE Stop: 11/06/17 21:43 Rocuronium [place] (Zemuron) Confirm Administered Dose 100 mg .ROUTE .STK-MED ONE Stop: 11/06/17 21:42 Sodium Chloride (Saline Flush) 10 ml FLUSH ASDIRECTED PRN PRN Reason: Keep Vein Open Sodium Chloride (Saline Flush) 2.5 ml FLUSH ASDIRECTED PRN PRN Reason: Keep Vein Open Succinylcholine Chloride (Quelicin) Confirm Administered Dose 200 mg .ROUTE .STK -MED ONE Stop: 11/06/17 21:42 Vasopressin (Vasopressin) Confirm Administered Dose 20 units .ROUTE .STK-MED ONE Stop: 11/06/17 22:23 - Exam General: Reports: Alert, Oriented, Cooperative HEENT: Reports: Pupils Equal Neck: Reports: Trachea Midline Lungs: Reports: Normal Respiratory Effort Cardiovascular: Reports: Regular Rate GI/Abdominal Exam: Soft, Non-Tender, No Distention, No Mass Back Exam: Reports: Normal Inspection, Full Range of Motion Skin: Reports: Warm, Dry, Intact Wound/Incisions: Reports: Healing Well Psy/Mental Status: Reports: Alert, Normal Affect
[2017-11-09] MEDS: Enoxaparin 40 MG/0.4 ML Syringe SUBCUT SCH (11:17)
== END 2017-11-09 11:00 | disposition home or self-care (01) | DRG 341 ==
LOC: MW.ED 17:17 → MW.SDS 21:10 → MW.ICU 11-07 01:00 → MW.MS 11-08 13:15
PROVIDERS: ADMIT Surgery; ATTEND Surgery
PROC: 0DTJ4ZZ Resection of Appendix, Percutaneous Endoscopic Approach (ICD-10-PCS; principal; 2017-11-07)
PROC: 0DJD4ZZ Inspection of Lower Intestinal Tract, Percutaneous Endoscopic Approach (ICD-10-PCS; 2017-11-07)
PROC: 03HY32Z Insertion of Monitoring Device into Upper Artery, Percutaneous Approach (ICD-10-PCS; 2017-11-07)
PROC: 05HN33Z Insertion of Infusion Device into Left Internal Jugular Vein, Percutaneous Approach (ICD-10-PCS; 2017-11-07)
DX: K35.80 Unspecified acute appendicitis (principal); R65.21 Severe sepsis with septic shock; N17.9 Acute kidney failure, unspecified; K37 Unspecified appendicitis; B96.81 Helicobacter pylori [H. pylori] as the cause of diseases classified elsewhere
CPT/HCPCS: 00840; 36415; 71045; 71045-26; 74177; 74177-26; 80048; 80053; 81001; 82150; 83605; 83690; 85025; 86677; 88304; 94640; 96365; 96375; 99284; 99285-25; A9270-GY; J0330; J1170; J1650; J2250; J2405; J2543; J2704; J3010; J7040; J7050; J7120; Q9967

== ENCOUNTER 2019-12-08 13:30 | Observation (INO) | payer OTHER ==
[2019-12-08] MEDS ORDERED: Sodium Chloride 0.9% 2.5 ML Syringe FLUSH PRN (13:43)
[2019-12-08] MEDS ORDERED: Sodium Chloride 0.9% 10 ML Syringe FLUSH PRN (13:43)
[2019-12-08] MEDS ORDERED: Sodium Chloride 0.9% 10 ML SDV IV PRN (13:43)
--- NOTE | 2019-12-08 14:02 | EDM.PDOC ---
ED HPI GENERAL MEDICAL PROBLEM - General Chief Complaint: Neuro Symptoms/Deficits Stated Complaint: POSSIBLE STROKE Time Seen by Provider: 12/08/19 13:47 - History of Present Illness INITIAL COMMENTS - FREE TEXT/NARRATIVE: History of present illness: Patient presents with left-sided facial weakness that began sometime overnight he last was well last night at 1 AM when he went to bed he awoke with some difficulty with numbness decreased and altered sensation on both sides of his tongue and then he developed some numbness and tingling to the left side of his face with difficulty closing his left eye he denies any nasal congestion lesions no ear pain or ear pressure there is been no headache no other symptoms to speak of. He is not weak anywhere else no difficulty speaking no difficulty with fine motor skills or with his balance. Thing seems to make it better or worse Review of systems: As per history of present illness and below otherwise all systems reviewed and negative. Past medical history: As per history of present illness and as reviewed below otherwise noncontributory. Surgical history: As per history of present illness and as reviewed below otherwise noncontributory. Social history: No reported history of drug or alcohol abuse. Family history: As per history of present illness and as reviewed below otherwise noncontributory. Physical exam: HEENT: Atraumatic, normocephalic, pupils reactive, negative for conjunctival pallor or scleral icterus, mucous membranes moist, throat clear, neck supple, nontender, trachea midline. Lungs: Clear to auscultation, breath sounds equal bilaterally, chest nontender. Heart: S1S2, regular, negative for clicks, rubs, or JVD. Abdomen: Soft, nondistended, nontender. Negative for masses or hepatosplenomegaly. Negative for costovertebral tenderness. Pelvis: Stable nontender. Genitourinary: Deferred. Rectal: Deferred. Extremities: Atraumatic, negative for cords or calf pain. Neurovascular unremarkable. Neuro: Awake, alert, oriented. Cranial nerves II through XII unremarkable with the exception of a partial palsy of the left facial nerve that is non-confluent. The forehead and face do move there week his periocular muscles appear to be somewhat weak and he is having difficulty closing his eye out away but he can smile making this a bit confounding of an exam finding. Cerebellum unremarkable. Motor and sensory unremarkable throughout. Exam nonfocal. Diagnostics: [] Therapeutics: [] Impression: JAMES versus an early partial Marcus's palsy [] Plan: I cannot definitively conclude that this is Marcus's palsy on exam. We are going to proceed with a CVA work-up and admission. Having said that he is outside the window for TPA and his deficits are so mild I would be hesitant to recommend this treatment [] Definitive disposition and diagnosis as appropriate pending reevaluation and review of above. - Related Data Allergies Allergy/AdvReac Type Severity Reaction Status Date / Time No Known Allergies Allergy Verified 12/08/19 13:56 Home Meds: Home Meds Cyclobenzaprine [Flexeril] 5 mg PO TID PRN #30 tablet 11/08/17 [Rx] Pantoprazole [ProTONIX] 40 mg PO BIDAC #24 tab.cr 11/08/17 [Rx] levoFLOXacin [Levaquin] 750 mg PO Q24H #12 tablet 11/08/17 [Rx] metroNIDAZOLE 250 mg PO Q6H #48 tablet 11/08/17 [Rx] bisacodyL [Dulcolax] 5 mg PO DAILY #14 tablet 11/09/17 [Rx] Past Medical History - Past Health History Medical/Surgical History: Denies Medical/Surgical History HEENT History: Reports: None Cardiovascular History: Reports: None Respiratory History: Reports: Asthma Gastrointestinal History: Reports: None Genitourinary History: Reports: None Musculoskeletal History: Reports: None Neurological History: Reports: None Psychiatric History: Reports: None Endocrine/Metabolic History: Reports: Obesity/BMI 30+ Hematologic History: Reports: None Immunologic History: Reports: None Oncologic (Cancer) History: Reports: None Dermatologic History: Reports: None - Infectious Disease History Infectious Disease History: Reports: Helicobacter Pylori - Past Surgical History HEENT Surgical History: Reports: Other (See Below) Social & Family History - Family History Family Medical History: Noncontributory - Caffeine Use Caffeine Use: Reports: Soda - Living Situation & Occupation Living situation: Reports: Occupation: Employed ED ROS GENERAL - Review of Systems Review Of Systems: See Below ED EXAM, GENERAL - Physical Exam Exam: See Below EKG INTERPRETATION EKG Interpretation Comments: EKG is normal sinus rhythm with a rate of [address]-T changes no roma ischemia normal intervals read and interpreted by me Course - Vital Signs Text/Narrative:: Patient CT was negative aspirin was started he will be admitted to telemetry ops. At 1520 I discussed the case with Dr. Marie AND SHE WILL ADMIT THE patient. Last Recorded V/S: Last Vital Signs Temp 35.5 C L 12/08/19 13:32 Pulse 82 12/08/19 14:20 Resp 17 12/08/19 14:20 BP 125/86 12/08/19 14:20 Pulse Ox 95 12/08/19 14:20 - Orders/Labs/Meds Orders: Active Orders 24 hr Category Date Time Status Patient Status [ADT] Routine ADT 12/08/19 15:20 Ordered Assess Neurological Status [RC] ASDIRECTED Care 12/08/19 13:43 Active EKG Documentation Completion [RC] STAT Care 12/08/19 13:43 Active Initiate Acute Stroke Protocol [RC] STAT Care 12/08/19 13:43 Active NIH Stroke Scale [RC] ASDIRECTED Care 12/08/19 13:43 Active CORONAVIRUS COVID-19 PCR PHL Stat Lab 12/08/19 15:19 Ordered Sodium Chloride 0.9% [Normal Saline] Med 12/08/19 13:43 Active 10 ml IV ASDIRECTED PRN Sodium Chloride 0.9% [Saline Flush] Med 12/08/19 13:43 Active 10 ml FLUSH ASDIRECTED PRN Sodium Chloride 0.9% [Saline Flush] Med 12/08/19 13:43 Active 2.5 ml FLUSH ASDIRECTED PRN Peripheral IV Insertion Adult [OM.PC] Stat Oth 12/08/19 13:43 Ordered Medication Orders Sodium Chloride (Saline Flush) 10 ml FLUSH ASDIRECTED PRN PRN Reason: Keep Vein Open Sodium Chloride (Saline Flush) 2.5 ml FLUSH ASDIRECTED PRN PRN Reason: Keep Vein Open Sodium Chloride (Normal Saline) 10 ml IV ASDIRECTED PRN PRN Reason: IV Use Labs: Laboratory Tests 12/08/19 12/08/19 12/08/19 Range/Units 13:44 13:44 13:44 WBC 6.74 (4.0-11.0) K/uL RBC 5.24 (4.50-5.90) M/uL Hgb 15.7 (13.0-17.0) g/dL Hct 46.1 (38.0-50.0) % MCV 88.0 (80.0-98.0) fL MCH 30.0 (27.0-32.0) pg MCHC 34.1 (31.0-37.0) g/dL RDW Std Deviation 46.1 (28.0-62.0) fl RDW Coeff of [place] 14 (11.0-15.0) % Plt Count 198 (150-400) K/uL MPV 10.90 (7.40-12.00) fL Neut % (Auto) 48.4 (48.0-80.0) % Lymph % (Auto) 46.9 H (16.0-40.0) % Trigg % (Auto) 3.4 (0.0-15.0) % Eos % (Auto) 1.0 (0.0-7.0) % Baso % (Auto) 0.3 (0.0-1.5) % Neut # (Auto) 3.3 (1.4-5.7) K/uL Lymph # (Auto) 3.2 H (0.6-2.4) K/uL Trigg # (Auto) 0.2 (0.0-0.8) K/uL Eos # (Auto) 0.1 (0.0-0.7) K/uL Baso # (Auto) 0.0 (0.0-0.1) K/uL Nucleated RBC % 0.0 /100WBC Nucleated RBCs # 0 K/uL INR 1.03 APTT 27.2 (18.6-31.3) SEC Sodium 139 (136-148) mmol/L Potassium 3.8 (3.5-5.1) mmol/L Chloride 102 (98-107) mmol/L Carbon Dioxide 27.3 (21.0-32.0) mmol/L BUN 11 (7.0-18.0) mg/dL Creatinine 1.2 (0.8-1.3) mg/dL Est Cr Clr Drug Dosing TNP Estimated GFR (MDRD) > 60.0 ml/min Glucose 150 H (74-106) mg/dL Calcium 9.5 (8.5-10.1) mg/dL Total Bilirubin 0.6 (0.2-1.0) mg/dL AST 60 H (15-37) IU/L ALT 140 H (14-63) IU/L Alkaline Phosphatase 69 (46-116) U/L Troponin I < 0.050 (0.000-0.056) ng/mL Total Protein 8.1 (6.4-8.2) g/dL Albumin 4.1 (3.4-5.0) g/dL Globulin 4.0 (2.6-4.0) g/dL Albumin/Globulin Ratio 1.0 (0.9-1.6) Meds: Medications Generic Name Dose Route Start Last Admin Trade Name Freq PRN Reason Stop Dose Admin Sodium Chloride 10 ml 12/08/19 13:43 Saline Flush FLUSH ASDIRECTED PRN Keep Vein Open Sodium Chloride 2.5 ml 12/08/19 13:43 Saline Flush FLUSH ASDIRECTED PRN Keep Vein Open Sodium Chloride 10 ml 12/08/19 13:43 Normal Saline IV ASDIRECTED PRN IV Use Discontinued Medications Generic Name Dose Route Start Last Admin Trade Name Freq PRN Reason Stop Dose Admin Aspirin 324 mg 12/08/19 15:15 Aspirin PO 12/08/19 15:16 ONETIME ONE Departure - Departure Time of Disposition: 15:20 Disposition: Refer to Observation Condition: Good Clinical Impression: Cerebrovascular accident (CVA) Qualifiers: Laterality of affected vessel: unspecified - Discharge Information *PRESCRIPTION DRUG MONITORING PROGRAM REVIEWED*: Not Applicable *COPY OF PRESCRIPTION DRUG MONITORING REPORT IN PATIENT SABRINA: Not Applicable Referrals: PCP,None [Primary Care Provider] - Forms: ED Department Discharge Sepsis Event Note (ED) - Evaluation Sepsis Screening Result: No Definite Risk - Focused Exam Vital Signs: Vital Signs Temp Pulse Resp BP Pulse Ox 12/08/19 14:20 82 17 125/86 95 12/08/19 14:05 85 17 127/53 L 95 12/08/19 13:50 90 17 126/55 L 95 12/08/19 13:32 35.5 C L 92 18 135/58 L 95 - My Orders Last 24 Hours: My Active Orders 12/08/19 15:19 CORONAVIRUS COVID-19 PCR PHL Stat 12/08/19 15:20 Patient Status [ADT] Routine - Assessment/Plan Last 24 Hours: My Active Orders 12/08/19 15:19 CORONAVIRUS COVID-19 PCR PHL Stat 12/08/19 15:20 Patient Status [ADT] Routine
--- NOTE | 2019-12-08 14:11 | CT ---
Head CT Technique: Multiple axial sections through the brain were obtained. Intravenous contrast was not utilized. Comparison: No prior intracranial imaging is available. Findings: Ventricles along with basal cisterns and sulci over the convexities are within normal limits for the patient's age. No abnormal parenchymal densities are seen. No evidence of intracranial hemorrhage. No midline shift or mass effect is appreciated. Bone window settings were reviewed. No acute calvarial abnormality is seen. Visualized mastoid sinuses and paranasal sinuses show nothing acute. Impression: 1. Nothing acute is appreciated on noncontrast head CT exam. Diagnostic code #1 This report was dictated in MDT
[2019-12-08 14:18] LABS: BLOOD UREA NITROGEN,BUN 11 mg/dL (7.0-18.0); CARBON DIOXIDE,CO2 27.3 mmol/L (21.0-32.0); CHLORIDE,CL 102 mmol/L (98-107); GLUCOSE RANDOM 150 mg/dL (74-106); POTASSIUM,K 3.8 mmol/L (3.5-5.1); SODIUM,NA 139 mmol/L (136-148)
[2019-12-08] MEDS ORDERED: Aspirin 81 MG Tab.Chew PO ONE (15:15)
[2019-12-08] MEDS ORDERED: Albuterol/Ipratropium 3.0-0.5 MG/3 ML Neb Soln NEB PRN (15:58)
--- NOTE | 2019-12-08 16:10 | PCM.HP.2 ---
H&P History of Present Illness - General Date of Service: 12/08/19 Admit Problem/Dx: Admission Diagnosis/Problem Admission Diagnosis/Problem CVA, Cerebrovascular accident - History of Present Illness Initial Comments - Free Text/Narative: Patient is a 39 y/o M with no significant PMH, PSH of appendicitis complicated by septic shock, who presents to ER with left-sided facial weakness. Patient states that yesterday he felt his tough was tingling and that he could not taste his food properly like it was "masked" He attributed it to possible allergic reaction to something he ate. This morning while washing his face he couldnt close his left eye properly and his left cheek was numb, he also states he has some numbness in right side of his tongue.. Denies any nasal congestion, recent URI, viral infection, cold sores, lesions, ear pain He is not weak anywhere else no difficulty speaking no difficulty with fine m. Denied any other focal neurological defect deficit. Significant family h/o of CVA, father at a stroke in his 50s. Labs in ER were reassuring, CT head was negative for any bleeding or stroke Received ASA in the ER. Patient is being admitted for further management for possible CVA. Neck Pain Score (Numeric/FACES): 3 - Related Data Allergies/Adverse Reactions: Allergies Allergy/AdvReac Type Severity Reaction Status Date / Time No Known Allergies Allergy Verified 12/08/19 17:14 Home Medications: Home Meds . [No Known Home Meds] 12/08/19 [History] Past Medical History - Past Health History Medical/Surgical History: Denies Medical/Surgical History HEENT History: Reports: None Cardiovascular History: Reports: None Respiratory History: Reports: Asthma Gastrointestinal History: Reports: None Genitourinary History: Reports: None Musculoskeletal History: Reports: None Neurological History: Reports: None Psychiatric History: Reports: None Endocrine/Metabolic History: Reports: Obesity/BMI 30+ Hematologic History: Reports: None Immunologic History: Reports: None Oncologic (Cancer) History: Reports: None Dermatologic History: Reports: None - Infectious Disease History Infectious Disease History: Reports: Helicobacter Pylori - Past Surgical History HEENT Surgical History: Reports: Other (See Below) Social & Family History - Family History Family Medical History: Noncontributory - Caffeine Use Caffeine Use: Reports: Soda - Living Situation & Occupation Living situation: Reports: Occupation: Employed H&P Review of Systems - Review of Systems: Review Of Systems: See Below General: Denies: Fever, Chills, Malaise, Weakness HEENT: Denies: Dysphasia, Ear Pain, Headaches, Hearing Changes, Sinus Congestion, Sore Throat, Vertigo, Visual Changes Pulmonary: Denies: Shortness of Breath, Wheezing Cardiovascular: Denies: Chest Pain, Palpitations Gastrointestinal: Denies: Abdominal Pain, Anorexia, Black Stool Genitourinary: Denies: Dysuria, Frequency, Burning Musculoskeletal: Denies: Neck Pain, Shoulder Pain, Arm Pain Skin: Denies: Cyanosis, Jaundice, Mottled Psychiatric: Denies: Confusion, Depression, Mood Lability Neurological: Reports: Numbness, Paresthesia. Denies: Confusion, Dizziness, Headache, Seizure, Tremors, Trouble Speaking Hematologic/Lymphatic: Denies: Anemia, Easy Bleeding Exam - Exam Exam: See Below - Vital Signs Vital Signs: Last Vital Signs Temp 35.5 C L 12/08/19 13:32 Pulse 70 12/08/19 16:05 Resp 15 12/08/19 16:05 BP 113/66 12/08/19 16:05 Pulse Ox 94 L 12/08/19 16:05 - Exam General: Alert, Oriented - Patient Data Lab Results Last 24 hrs: Laboratory Results - last 24 hr 12/08/19 12/08/19 12/08/19 Range/Units 13:44 13:44 13:44 WBC 6.74 (4.0-11.0) K/uL RBC 5.24 (4.50-5.90) M/uL Hgb 15.7 (13.0-17.0) g/dL Hct 46.1 (38.0-50.0) % MCV 88.0 (80.0-98.0) fL MCH 30.0 (27.0-32.0) pg MCHC 34.1 (31.0-37.0) g/dL RDW Std Deviation 46.1 (28.0-62.0) fl RDW Coeff of Chalino 14 (11.0-15.0) % Plt Count 198 (150-400) K/uL MPV 10.90 (7.40-12.00) fL Neut % (Auto) 48.4 (48.0-80.0) % Lymph % (Auto) 46.9 H (16.0-40.0) % [place] % (Auto) 3.4 (0.0-15.0) % Eos % (Auto) 1.0 (0.0-7.0) % Baso % (Auto) 0.3 (0.0-1.5) % Neut # (Auto) 3.3 (1.4-5.7) K/uL Lymph # (Auto) 3.2 H (0.6-2.4) K/uL [place] # (Auto) 0.2 (0.0-0.8) K/uL Eos # (Auto) 0.1 (0.0-0.7) K/uL Baso # (Auto) 0.0 (0.0-0.1) K/uL Nucleated RBC % 0.0 /100WBC Nucleated RBCs # 0 K/uL INR 1.03 APTT 27.2 (18.6-31.3) SEC Sodium 139 (136-148) mmol/L Potassium 3.8 (3.5-5.1) mmol/L Chloride 102 (98-107) mmol/L Carbon Dioxide 27.3 (21.0-32.0) mmol/L BUN 11 (7.0-18.0) mg/dL Creatinine 1.2 (0.8-1.3) mg/dL Est Cr Clr Drug Dosing TNP Estimated GFR (MDRD) > 60.0 ml/min Glucose 150 H (74-106) mg/dL Calcium 9.5 (8.5-10.1) mg/dL Total Bilirubin 0.6 (0.2-1.0) mg/dL AST 60 H (15-37) IU/L ALT 140 H (14-63) IU/L Alkaline Phosphatase 69 (46-116) U/L Troponin I < 0.050 (0.000-0.056) ng/mL Total Protein 8.1 (6.4-8.2) g/dL Albumin 4.1 (3.4-5.0) g/dL Globulin 4.0 (2.6-4.0) g/dL Albumin/Globulin Ratio 1.0 (0.9-1.6) Result Diagrams: 12/08/19 13:44 12/08/19 13:44 Sepsis Event Note - Evaluation Sepsis Screening Result: No Definite Risk - Focused Exam Vital Signs: Vital Signs Temp Pulse Resp BP Pulse Ox 12/08/19 16:05 70 15 113/66 94 L 12/08/19 14:20 82 17 125/86 95 12/08/19 14:05 85 17 127/53 L 95 12/08/19 13:50 90 17 126/55 L 95 12/08/19 13:32 35.5 C L 92 18 135/58 L 95 Date Exam was Performed: 12/08/19 Time Exam was Performed: 21:17 - Problem List (1) Facial nerve palsy SNOMED Code(s): 886301966 ICD Code: G51.0 - RODRIGUEZ'S PALSY Status: Acute Current Visit: Yes Problem List Initiated/Reviewed/Updated: Yes Orders Last 24hrs: Active Orders 24 hr Category Date Time Status Admission Status [Patient Status] [ADT] Stat ADT 12/08/19 15:57 Ordered Ambulate [RC] ASDIRECTED Care 12/08/19 15:58 Ordered Antiembolic Devices [RC] PER UNIT ROUTINE Care 12/08/19 15:59 Ordered Assess Neurological Status [RC] ASDIRECTED Care 12/08/19 13:43 Active EKG Documentation Completion [RC] STAT Care 12/08/19 13:43 Active Initiate Acute Stroke Protocol [RC] STAT Care 12/08/19 13:43 Active NIH Stroke Scale [RC] ASDIRECTED Care 12/08/19 13:43 Active Oxygen Therapy [RC] PRN Care 12/08/19 15:58 Ordered Pulse Oximetry [RC] PRN Care 12/08/19 15:58 Ordered RT Aerosol Therapy [RC] ASDIRECTED Care 12/08/19 15:59 Ordered VTE/DVT Education [RC] PER UNIT ROUTINE Care 12/08/19 15:58 Ordered Vital Signs [RC] Q4H Care 12/08/19 15:58 Ordered Regular Diet [DIET] Diet 12/08/19 Dinner Ordered Ang Neck w wo Cont [MR] Stat Exams 12/09/19 08:00 Ordered Brain wo Cont [MR] Stat Exams 12/09/19 08:00 Ordered Echo Comp wo Cont [US] Stat Exams 12/09/19 08:00 Ordered MRA Head Without Contrast [Ang Head wo Cont] [MR] Stat Exams 12/09/19 08:00 Ordered CORONAVIRUS COVID-19 PCR PHL Stat Lab 12/08/19 15:19 Ordered GLYCOSYLATED HEMOGLOBIN,HGBA1C [CHEM] AM Lab 12/09/19 05:11 Ordered HEPATIC FUNCTION PANEL,HFP [CHEM] AM Lab 12/09/19 05:11 Ordered LIPID PANEL [CHEM] AM Lab 12/10/19 05:11 Ordered TSH [CHEM] AM Lab 12/09/19 05:11 Ordered Albuterol/Ipratropium [DuoNeb 3.0-0.5 MG/3 ML] Med 12/08/19 15:58 Ordered 3 ml NEB Q4HRRT PRN Aspirin Med 12/09/19 09:00 Ordered 81 mg PO DAILY Sodium Chloride 0.9% [Normal Saline] Med 12/08/19 13:43 Active 10 ml IV ASDIRECTED PRN Sodium Chloride 0.9% [Saline Flush] Med 12/08/19 13:43 Active 10 ml FLUSH ASDIRECTED PRN Sodium Chloride 0.9% [Saline Flush] Med 12/08/19 13:43 Active 2.5 ml FLUSH ASDIRECTED PRN atorvaSTATin [Lipitor] Med 12/08/19 21:00 Ordered 40 mg PO BEDTIME Peripheral IV Insertion Adult [OM.PC] Stat Oth 12/08/19 13:43 Ordered Sequential Compression Device [OM.PC] Per Unit Routine Oth 12/08/19 15:59 Orde red Resuscitation Status Routine Resus Stat 12/08/19 15:58 Ordered Medication Orders Albuterol/Ipratropium (Duoneb 3.0-0.5 Mg/3 Ml) 3 ml NEB Q4HRRT PRN PRN Reason: Shortness Of Breath/wheezing Aspirin (Aspirin) 81 mg PO DAILY DARRELL Atorvastatin Calcium (Lipitor) 40 mg PO BEDTIME DARRELL Sodium Chloride (Saline Flush) 10 ml FLUSH ASDIRECTED PRN PRN Reason: Keep Vein Open Sodium Chloride (Saline Flush) 2.5 ml FLUSH ASDIRECTED PRN PRN Reason: Keep Vein Open Sodium Chloride (Normal Saline) 10 ml IV ASDIRECTED PRN PRN Reason: IV Use Assessment/Plan Comment:: 39 y/o M admitted for left sided facial weakness, differentials include but not limited to bells palsy, stroke, lyme, sarcoid Admit ot observation tele Forehead muscles seems to be spared, Check TSH, Lipid panel, HbA1c Obtain MRI brain, MRA head and neck Obtain 2D ECHO Eye drops as needed Monitor and replete electrolytes as needed SCD for dvt ppx
[2019-12-08] MEDS ORDERED: Carboxymethylcellulose Sodium 0.5% Ophth Soln 0.4 ML UD Box of 30 EYEBOTH PRN (17:59)
[2019-12-08] MEDS ORDERED: atorvaSTATin 40 MG Tab PO SCH (21:00)
[2019-12-09 06:42] LABS: BILIRUBIN INDIRECT 0.4
[2019-12-09] MEDS ORDERED: Aspirin 81 MG Tab.Chew PO SCH (09:00)
[2019-12-09] MEDS ORDERED: predniSONE 20 MG Tab PO SCH (10:16)
[2019-12-09] MEDS ORDERED: Gadobenate Dimeglumine 529 MG/ML 20 ML SDV IVPUSH STA ×2 (12:31→13:25)
[2019-12-09] MEDS ORDERED: LORazepam 2 MG/ML SDV IVPUSH ONE (13:00)
--- NOTE | 2019-12-09 14:26 | MR ---
MRI brain (without and with intravenous contrast) Technique: T1 sagittal and coronal; T1, T2, FLAIR and diffusion axial; postcontrast T1 fat-suppressed sagittal, coronal and axial images were obtained. Comparison: Prior noncontrast head CT study of 12/08/19. Findings: Ventricles along with basal cisterns and sulci over the convexities are within normal limits for the patient's age. Minimal descent of the cerebellar tonsils below the foramen magnum are noted which is felt to be a normal variant. Minimal areas of increased signal are seen within the subcortical white matter within both frontal lobes. No other abnormal signal is seen within the brain parenchyma. Normal signal void is seen within the major cerebral arteries within the skull base. Mastoid sinuses and visualized paranasal sinuses are clear. No acute diffusion abnormalities are appreciated. No abnormal enhancement is appreciated. Impression: 1. Slight descent of the cerebellar tonsils below the foramen magnum is felt to be a normal variant. 2. Several minimal areas of increased signal within the subcortical region of both frontal lobes which is nonspecific but most likely is chronic. 3. No additional abnormality is appreciated. Diagnostic code #2 Study was dictated in MDT
--- NOTE | 2019-12-09 14:57 | PCM.DCSUM1 ---
Discharge Summary - Hospital Course Diagnosis: Stroke: No - Discharge Data Discharge Date: 12/09/19 Discharge Disposition: Home, Self-Care 01 Condition: Good - Referral to Home Health Primary Care Physician: PCP None - Discharge Diagnosis/Problem(s) (1) Rodriguez's palsy SNOMED Code(s): 469714665 ICD Code: G51.0 - RODRIGUEZ'S PALSY Status: Acute Current Visit: Yes - Patient Summary/Data Hospital Course: Admitting Diagnoses: L facial numbness Discharge Diagnoses Rodriguez's palsy Lino was admitted with L facial numbness, concern for CVA. Yesterday L forehead creases were present. MRI brain ordered. Head CT negative. He was monitored overnight. Today he felt as though the numbness continued to worsen. Forehead creases now gone and more peripheral facial palsy is noted. MRI obtained, which showed chronic changes to subcortical region of both frontal lobes. No acute infarct. He was started on Prednisone 60 mg daily for 1 week. He was counseled on eye protection and applying eye drops. Educated on wearing an eye patch at bedtime or during the day if more comfortable. Encouraged to use eye ointment at night to keep eye well moisturized. He is to follow up with neurology and PCP as scheduled. He is to return to ED or clinic if concerns should arise. - Patient Instructions Diet: Regular Diet as Tolerated Activity: As Tolerated, No Strenuous Activities Activity, Other: Protect eye Driving: Do Not Drive (today) Showering/Bathing: May Shower Notify Provider of: Fever, Increased Pain, Swelling and Redness, Drainage Other/Special Instructions: Protect eye from injury, wearing glasses or goggles during the day. Cover eye with patch at night. Apply artifical tears frequently, can apply as frequently as every 1 hour. Consider using ointment for moisture at night, as during the day the ointment may make vision blurry. - Discharge Plan *PRESCRIPTION DRUG MONITORING PROGRAM REVIEWED*: Not Applicable *COPY OF PRESCRIPTION DRUG MONITORING REPORT IN PATIENT SABRINA: Not Applicable Prescriptions/Med Rec: Dextran 70/Hypromellose [Artificial Tears Eye Drops] 1 - 2 drop EYELF Q1H PRN #1 bottle PRN Reason: [place] palsy, dry eye Mineral Oil/Petrolatum,White [Akwa Tears Ointment] 1 applic EYELF BEDTIME PRN #1 oint...g. PRN Reason: Dry Eyes predniSONE 60 mg PO WITHBREAKFAST #18 tablet Home Medications: Home Meds Aspirin 81 mg PO DAILY tab.chew 12/09/19 [Rx] Dextran 70/Hypromellose [Artificial Tears Eye Drops] 1 - 2 drop EYELF Q1H PRN #1 bottle 12/09/19 [Rx] Mineral Oil/Petrolatum,White [Akwa Tears Ointment] 1 applic EYELF BEDTIME PRN #1 oint...g. 12/09/19 [Rx] predniSONE 60 mg PO WITHBREAKFAST #18 tablet 12/09/19 [Rx] Oxygen Therapy Mode: Room Air Patient Handouts: Rodriguez Palsy, Adult Referrals: [facility] [Outside] Kenneth Carvalho MD [Ordering Only Provider] - 12/17/19 12:30 pm (arrive 15 minutes early with a photo ID, insurance card, and a mask. ) - Discharge Summary/Plan Comment DC Time >30 min.: No - Patient Data Vitals - Most Recent: Last Vital Signs Temp 97.7 F 12/09/19 12:00 Pulse 64 12/09/19 12:00 Resp 18 12/09/19 12:00 BP 116/62 12/09/19 12:00 Pulse Ox 92 L 12/09/19 12:00 Weight - Most Recent: 104 kg I&O - Last 24 hours: Intake & Output 12/08/19 12/09/19 12/09/19 22:59 06:59 14:59 Intake Total 850 Output Total 750 Balance 100 Lab Results - Last 24 hrs: Laboratory Results - last 24 hr 12/08/19 12/09/19 12/09/19 Range/Units 16:00 05:15 05:15 Hemoglobin A1c 6.0 (4.5-6.2) % Total Bilirubin 0.5 (0.2-1.0) mg/dL Direct Bilirubin 0.10 (0.0-0.5) mg/dL Indirect Bilirubin 0.40 AST 46 H (15-37) IU/L ALT 122 H (14-63) IU/L Alkaline Phosphatase 61 (46-116) U/L Total Protein 7.5 (6.4-8.2) g/dL Albumin 3.8 (3.4-5.0) g/dL Globulin 3.7 (2.6-4.0) g/dL Albumin/Globulin Ratio 1.0 (0.9-1.6) Triglycerides (0-200) mg/dL Cholesterol (50-200) mg/dL LDL Cholesterol, Calc (60-180) mg/dL VLDL Cholesterol (5-55) mg/dL HDL Cholesterol (40-60) mg/dL Cholesterol/HDL Ratio (3.3-6.0) TSH 3rd Generation 1.83 (0.36-3.74) uIU/mL COVID-19 (JULY) NEGATIVE (NEGATIVE) 12/09/19 Range/Units 05:15 Hemoglobin A1c (4.5-6.2) % Total Bilirubin (0.2-1.0) mg/dL Direct Bilirubin (0.0-0.5) mg/dL Indirect Bilirubin AST (15-37) IU/L ALT (14-63) IU/L Alkaline Phosphatase (46-116) U/L Total Protein (6.4-8.2) g/dL Albumin (3.4-5.0) g/dL Globulin (2.6-4.0) g/dL Albumin/Globulin Ratio (0.9-1.6) Triglycerides 185 (0-200) mg/dL Cholesterol 193 (50-200) mg/dL LDL Cholesterol, Calc 123 (60-180) mg/dL VLDL Cholesterol 37 (5-55) mg/dL HDL Cholesterol 33 L (40-60) mg/dL Cholesterol/HDL Ratio 5.8 (3.3-6.0) TSH 3rd Generation (0.36-3.74) uIU/mL COVID-19 (JULY) (NEGATIVE) Med Orders - Current: Current Medications Albuterol/Ipratropium (Duoneb 3.0-0.5 Mg/3 Ml) 3 ml NEB Q4HRRT PRN PRN Reason: Shortness Of Breath/wheezing Artificial Tears (Refresh Plus 0.5%) 0 each EYEBOTH Q6H PRN PRN Reason: Dry Eyes Last Admin: 12/08/19 19:51 Dose: 1 drop Documented by: Aspirin (Aspirin) 81 mg PO DAILY [facility] Last Admin: 12/09/19 09:17 Dose: 81 mg Documented by: Atorvastatin Calcium (Lipitor) 40 mg PO BEDTIME DARRELL Last Admin: 12/08/19 21:22 Dose: 40 mg Documented by: Prednisone (Prednisone) 60 mg PO WITHBREAKFAST DARRELL Last Admin: 12/09/19 10:41 Dose: 60 mg Documented by: Sodium Chloride (Saline Flush) 10 ml FLUSH ASDIRECTED PRN PRN Reason: Keep Vein Open Sodium Chloride (Saline Flush) 2.5 ml FLUSH ASDIRECTED PRN PRN Reason: Keep Vein Open Sodium Chloride (Normal Saline) 10 ml IV ASDIRECTED PRN PRN Reason: IV Use Discontinued Medications Aspirin (Aspirin) 324 mg PO ONETIME ONE Stop: 12/08/19 15:16 Last Admin: 12/08/19 15:21 Dose: 324 mg Documented by: Gadobenate Dimeglumine (Multihance) 20 ml IVPUSH ONETIME STA Stop: 12/09/19 12:32 Last Admin: 12/09/19 13:20 Dose: Not Given Documented by: Gadobenate Dimeglumine (Multihance) 20 ml IVPUSH ONETIME STA Stop: 12/09/19 13:26 Last Admin: 12/09/19 13:27 Dose: 20 ml Documented by: Lorazepam (Ativan) 0.5 mg IVPUSH ONETIME ONE Stop: 12/09/19 13:01 Last Admin: 12/09/19 13:19 Dose: 0.5 mg Documented by: - Exam General: Reports: Alert, Oriented, Cooperative, No Acute Distress Lungs: Reports: Clear to Auscultation, Normal Respiratory Effort Cardiovascular: Reports: Regular Rate, Regular Rhythm GI/Abdominal Exam: Normal Bowel Sounds, Soft, Non-Tender Extremities: Normal Inspection, Normal Range of Motion, Non-Tender Neurological: Reports: Other (L facial palsy with forehead crease absent. Able to close L eye lid slowly. )
--- NOTE | 2019-12-10 14:23 | ECHO ---
EXAM DATE: 12/08/19 PATIENT'S AGE: 39 The ECHO report has been scanned into [employer] and can be seen in this patient's EMR (Electronic Medical Record) under the REPORTS section. The report has also been scanned into PACS. [email or web address]
== END 2019-12-09 15:42 | disposition home or self-care (01) ==
LOC: MW.ED 13:30 → MW.MS 15:57
PROVIDERS: ADMIT Student in an Organized Health Care Education/Training Program; ATTEND Student in an Organized Health Care Education/Training Program
DX: G51.0 Bell's palsy (principal); J45.909 Unspecified asthma, uncomplicated; E66.9 Obesity, unspecified; Z20.828 Contact with and (suspected) exposure to other viral communicable diseases; Z68.35 Body mass index [BMI] 35.0-35.9, adult
CPT/HCPCS: 36415; 70450; 70553; 80053; 80061; 80076; 83036; 84443; 84484; 85025; 85610; 85730; 87635; 93005; 93306; 96374; 99285; A9270; A9577; G0378; J2060; 99284; U0002

== ENCOUNTER 2022-05-13 15:22 | Emergency (ER) | payer OTHER | END 2022-05-13 19:10 | disposition home or self-care (01) | LOC: MW.ED 15:22 | DX: H66.91 Otitis media, unspecified, right ear (principal); E66.9 Obesity, unspecified; Z68.36 Body mass index [BMI] 36.0-36.9, adult | CPT/HCPCS: 99282 ==

== ENCOUNTER 2023-09-09 12:12 | Emergency (ER) | payer OTHER ==
[2023-09-09] MEDS: Ondansetron 4 MG Tab.DIS PO ONE (12:46)
[2023-09-09] MEDS: predniSONE 10 MG Tab PO ONE (12:46)
[2023-09-09] MEDS: Albuterol/Ipratropium 3.0-0.5 MG/3 ML Neb Soln NEB ONE (12:51)
[2023-09-09 13:26] LABS: CORONAVIRUS COVID-19 NAA POSITIVE (NEGATIVE); INFLUENZA A NAA NEGATIVE (NEGATIVE); INFLUENZA B NAA NEGATIVE (NEGATIVE)
== END 2023-09-09 14:27 | disposition home or self-care (01) ==
LOC: MW.ED 12:12
DX: U07.1 COVID-19 (principal); J45.901 Unspecified asthma with (acute) exacerbation; Z75.8 Other problems related to medical facilities and other health care; Z79.51 Long term (current) use of inhaled steroids; Z79.899 Other long term (current) drug therapy; Z90.49 Acquired absence of other specified parts of digestive tract
CPT/HCPCS: 0240U; 71045; 94640; 99285; A9270; 99283; J7620-GY

== ENCOUNTER 2023-09-17 08:12 | Observation (INO) | payer OTHER ==
[2023-09-17] MEDS: Ondansetron 4 MG Tab.DIS PO ONE (08:38)
[2023-09-17] MEDS: predniSONE 20 MG Tab PO ONE (08:38)
[2023-09-17] MEDS: Albuterol/Ipratropium 3.0-0.5 MG/3 ML Neb Soln NEB ONE (08:39)
[2023-09-17 08:52] LABS: BASOPHILS ABSOLUTE AUTO 0.06 K/uL (0.00-0.20); BASOPHILS PERCENT AUTO 0.5 % (0.0-1.0); EOSINOPHILS ABSOLUTE AUTO 0.86 K/uL (0.00-0.45); EOSINOPHILS PERCENT AUTO 7.7 % (0.0-6.0); HEMATOCRIT 43.5 % (42.0-52.0); HEMOGLOBIN 14.8 g/dL (14.0-18.0); IMMATURE GRAN PERCENT AUTO 0.9 % (0.0-0.4); LYMPHOCYTES ABSOLUTE AUTO 3.35 K/uL (1.00-4.80); LYMPHOCYTES PERCENT AUTO 30.2 % (24.0-44.0); MEAN CORPUSCULAR HEMOGLOBIN 28.5 pg (28.0-32.0); MEAN CORPUSCULAR VOLUME 83.8 fL (83.0-99.0); MEAN PLATELET VOLUME 10.6 fL (9.4-12.4); MONOCYTES ABSOLUTE AUTO 0.46 K/uL (0.00-0.80); MONOCYTES PERCENT AUTO 4.1 % (0.0-8.0); NEUTROPHILS ABSOLUTE AUTO 6.27 K/uL (1.80-7.70); NEUTROPHILS PERCENT AUTO 56.6 % (41.0-71.0); PLATELET COUNT,PLT 217 K/uL (150-400); RED BLOOD CELL COUNT 5.19 M/uL (4.52-5.90)
[2023-09-17 09:16] LABS: A/G RATIO 0.9 (0.9-1.6); ALBUMIN 3.6 g/dL (3.4-5.0); BILIRUBIN TOTAL 0.6 mg/dL (0.2-1.0); CARBON DIOXIDE,CO2 25.3 mmol/L (21.0-32.0); CREATININE 1.2 mg/dL (0.8-1.3); EST CRCL DRUG DOSING (CG) 75.74 mL/min; POTASSIUM,K 3.7 mmol/L (3.5-5.1); PROTEIN TOTAL,TP 7.7 g/dL (6.4-8.2)
[2023-09-17 09:26] LABS: CORONAVIRUS COVID-19 NAA NEGATIVE (NEGATIVE); INFLUENZA A NAA NEGATIVE (NEGATIVE); INFLUENZA B NAA NEGATIVE (NEGATIVE); RESPIRATORY SYNCYTIAL VIR NAA NEGATIVE (NEGATIVE)
[2023-09-17] MEDS: Albuterol 0.083% 2.5 MG/3 ML Neb Soln NEB ONE ×2 (10:10→14:19)
[2023-09-17] MEDS: Sodium Chloride 0.9% 10 ML Syringe FLUSH PRN (14:20)
[2023-09-17] MEDS: Sodium Chloride 0.9% 2.5 ML Syringe FLUSH PRN (14:20)
[2023-09-17] MEDS ORDERED: Polyethylene Glycol 3350 Powder 17 GM Packet PO PRN (14:29)
[2023-09-17] MEDS ORDERED: Acetaminophen 325 MG Tab PO PRN (14:29)
[2023-09-17] MEDS ORDERED: Ondansetron 4 MG Tab.DIS PO PRN (14:29)
[2023-09-17] MEDS: Magnesium Sulfate/Water 2 GM in Premix Bag 1 BAG IV ONE (15:42)
[2023-09-17] MEDS: Azithromycin 500 MG in Sodium Chloride 0.9% 250 ML IV SCH (15:42)
[2023-09-17] MEDS: cefTRIAXone 1 GM in Sodium Chloride 0.9% 50 ML IV SCH (15:42)
[2023-09-17] MEDS: Enoxaparin 40 MG/0.4 ML Syringe SUBCUT SCH (17:04)
[2023-09-18 05:34] LABS: BASOPHILS ABSOLUTE AUTO 0.02 K/uL (0.00-0.20); BASOPHILS PERCENT AUTO 0.2 % (0.0-1.0); EOSINOPHILS ABSOLUTE AUTO 0.51 K/uL (0.00-0.45); EOSINOPHILS PERCENT AUTO 4.3 % (0.0-6.0); HEMATOCRIT 41.5 % (42.0-52.0); HEMOGLOBIN 13.8 g/dL (14.0-18.0); IMMATURE GRAN ABSOLUTE AUTO 0.09 K/uL (0.00-0.05); IMMATURE GRAN PERCENT AUTO 0.8 % (0.0-0.4); LYMPHOCYTES ABSOLUTE AUTO 3.19 K/uL (1.00-4.80); LYMPHOCYTES PERCENT AUTO 26.8 % (24.0-44.0); MEAN CORPUSCULAR HEMOGLOBIN 28.5 pg (28.0-32.0); MEAN CORPUSCULAR HGB CONC 33.3 g/dL (32.0-36.0); MEAN CORPUSCULAR VOLUME 85.6 fL (83.0-99.0); MEAN PLATELET VOLUME 10.4 fL (9.4-12.4); MONOCYTES ABSOLUTE AUTO 0.64 K/uL (0.00-0.80); MONOCYTES PERCENT AUTO 5.4 % (0.0-8.0); NEUTROPHILS ABSOLUTE AUTO 7.47 K/uL (1.80-7.70); NEUTROPHILS PERCENT AUTO 62.5 % (41.0-71.0); PLATELET COUNT,PLT 199 K/uL (150-400); RED BLOOD CELL COUNT 4.85 M/uL (4.52-5.90); WHITE BLOOD CELL COUNT,WBC 11.92 K/uL (3.9-11.3)
[2023-09-18 05:57] LABS: A/G RATIO 0.8 (0.9-1.6); ALBUMIN 3.2 g/dL (3.4-5.0); BILIRUBIN TOTAL 0.4 mg/dL (0.2-1.0); CARBON DIOXIDE,CO2 27.4 mmol/L (21.0-32.0); EST CRCL DRUG DOSING (CG) 90.89 mL/min; MAGNESIUM 2.3 mg/dL (1.8-2.4); POTASSIUM,K 3.9 mmol/L (3.5-5.1); PROTEIN TOTAL,TP 7.2 g/dL (6.4-8.2)
[2023-09-18] MEDS: predniSONE 20 MG Tab PO SCH (08:30)
[2023-09-18] MEDS: Pantoprazole 40 MG Tab.CR PO SCH (08:31)
== END 2023-09-18 12:00 | disposition home or self-care (01) ==
LOC: MW.ED 08:12 → MW.MS 13:55
PROVIDERS: ADMIT Family Medicine; ATTEND Family Medicine
DX: J96.01 Acute respiratory failure with hypoxia (principal); J45.901 Unspecified asthma with (acute) exacerbation; E66.9 Obesity, unspecified; Z68.30 Body mass index [BMI] 30.0-30.9, adult; Z98.890 Other specified postprocedural states; Z20.822 Contact with and (suspected) exposure to COVID-19
CPT/HCPCS: 0241U; 36415; 71045; 80053; 83735; 84484; 85025; 93005; 96365; 96368; 99285; A9270; G0378; J0456; J0696; J3475; J3490; J7050; 93010; 99283; J7620-GY